=== PATIENT | male | born 1940 | race Caucasian/White ===

== ENCOUNTER 2018-10-25 15:41 | Inpatient (IN) | payer OTHER, BC ==
--- NOTE | 2018-10-25 16:11 | PDOC ---
History of Present Illness - General Chief Complaint: Syncope/Near Syncope Stated Complaint: SYNCOPE Time Seen by Provider: 10/25/18 16:10 History Source: Patient Exam Limitations: No Limitations - History of Present Illness Initial Comments: 10/25/18 16:11 This is a 78 yo M with pmh of HTN, HLD, NIDDM, CAD s/p stent 2010, parkinsons, who presents s/p 2 syncopal episodes. patient was at baseline until this morning when he started feeling week. He was on the way to a coffee shop when he felt diffuse weakness and lightheadedness which preceded an unwitnessed syncopal episode. patient does not know how long he was unconscious but woke up to 2 people helping him get his R leg out of a fence where it was stuck. He proceeded to walk to the coffee shop where he syncopised again (same prodrinme bt was caught by an employee). He denies feeling cp, palpitations, flushing, sweating, nausea before either episodes. He denies feeling unusually tired, urinating onhimsef or discovering a bitten tongue once he woke up. He typically experiences palpitations and l sided cp when he exerts himself. 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 He denies focal weakness or paresthesia but complains of r knee pain, upper thoracic and lumbar spine pain. drinks several glasses of wine /week states he had a tetanus shot within the past 10 yrs 10/25/18 17:01 10/25/18 17:15 10/25/18 17:36 10/25/18 17:49 Past History - Past Medical History Allergies/Adverse Reactions: Allergies Allergy/AdvReac Type Severity Reaction Status Date / Time No Known Allergies Allergy Verified 10/25/18 15:50 Home Medications: Ambulatory Orders Atorvastatin Ca [Lipitor] 40 mg PO HS 10/25/18 Brimonidine Tartrate/Timolol [Combigan Eye Drops] 1 drop OU BID 10/25/18 Carbidopa/Levodopa [Carbidopa-Levo ER 50-200 Tab] 1 each PO TID 10/25/18 Carvedilol [Coreg -] 3.125 mg PO BID 10/25/18 Glipizide/Metformin HCl [Glipizide-Metformin 5-500 mg] 1 each PO TID 10/25/18 Lisinopril [Prinivil] 10 mg PO DAILY 10/25/18 Sitagliptin Phosphate [Januvia] 100 mg PO DAILY 10/25/18 Anemia: No Asthma: No Cancer: No Cardiac Disorders: Yes (CAD) CVA: No COPD: No CHF: No Dementia: No Diabetes: Yes (x43 yrs) GI Disorders: No Disorders: No HTN: Yes Hypercholesterolemia: Yes Liver Disease: No Seizures: No Thyroid Disease: No - Surgical History Abdominal Surgery: No Appendectomy: Yes Cardiac Surgery: Yes (cardiac stent 1x) Cholecystectomy: No Lung Surgery: No Neurologic Surgery: No Orthopedic Surgery: No - Suicide/Smoking/Psychosocial Hx Smoking Status: No Smoking History: Never smoked Have you smoked in the past 12 months: No Number of Cigarettes Smoked Daily: 0 If you are a former smoker, when did you quit?: 30 yrs ago Hx Alcohol Use: No Drug/Substance Use Hx: No Substance Use Type: None Hx Substance Use Treatment: No Review of Systems - Review of Systems Able to Perform ROS?: Yes Is the patient limited Chinese proficient: No Constitutional: Yes: Weakness. No: Chills, Fever, Malaise, Night Sweats HEENTM: No: Nose Congestion, Tinnitus, Throat Pain Respiratory: No: Cough, Orthopnea, Shortness of Breath, Wheezing, Hemoptysis Cardiac (ROS): Yes: Lightheadedness. No: Chest Pain, Edema, Irregular Heart Rate, Palpitations ABD/GI: No: Abdominal Distended, Constipated, Diarrhea, Nausea, Vomiting, Abdominal cramping : No: Dysuria Musculoskeletal: Yes: Back Pain (thoracic and lumbar ), Joint Pain (r knee ) Neurological: No: Headache, Numbness, Paresthesia, Ataxia *Physical Exam - Vital Signs Last Vital Signs Temp Pulse Resp BP Pulse Ox 98.2 F 81 14 149/73 99 10/25/18 15:45 10/25/18 15:45 10/25/18 15:45 10/25/18 15:45 10/25/18 15:45 - Physical Exam General Appearance: Yes: Appropriately Dressed. No: Apparent Distress HEENT: positive: EOMI, KEVIN, Normal Voice, Symmetrical. negative: Scleral Icterus (R), Scleral Icterus (L) Neck: positive: Trachea midline, Normal Thyroid, Supple. negative: Tender Respiratory/Chest: positive: Lungs Clear, Normal Breath Sounds. negative: Chest Tender Cardiovascular: positive: Regular Rate, S1, S2, Murmur (loud systolic murmur best at apex radiating to carotids ). negative: JVD Gastrointestinal/Abdominal: positive: Normal Bowel Sounds, Flat, Soft. 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 negative: Facial Droop, Sensory Deficit Moderate Sedation - Procedure Monitoring Vital Signs: Procedure Monitoring Vital Signs Temperature 98.2 F 10/25/18 15:45 Pulse Rate 81 10/25/18 15:45 Respiratory Rate 14 10/25/18 15:45 Blood Pressure 149/73 10/25/18 15:45 O2 Sat by Pulse Oximetry (%) 99 10/25/18 15:45 ED Treatment Course - LABORATORY CBC & Chemistry Diagram: 10/25/18 16:54 10/25/18 16:54 - ADDITIONAL ORDERS Additional order review: 10/25/18 17:45 ekg ns 80 rbbb (old), new t inversion in III 10/25/18 17:49 labs significant for slight hyponatremia and elevated BUN consistent with volume contraction, will replete mag to 2. 10/25/18 18:14 10/25/18 18:[address] no acute pathology, chronic microvascular infarcts 10/25/18 18:50 will need at least obs tele if spine/r knee xrays are negative *DC/Admit/Observation/Transfer Diagnosis at time of Disposition: Syncope and collapse - Referrals Referrals: Kiko Brower MD [Primary Care Provider] - - Patient Instructions - Post Discharge Activity
[2018-10-25 17:15] LABS: BASO % 0.8 % (0-2.0); EOS % 0.4 % (0-4.5); HEMATOCRIT 29.1 % (35.4-49); HEMOGLOBIN 9.8 GM/dL (11.7-16.9); LYMPH % 8.8 % (8-40); MCH 29.5 pg (25.7-33.7); MCHC 33.8 g/dl (32.0-35.9); MEAN CELL VOLUME 87.4 fl (80-96); MEAN PLT VOLUME 8.6 fl (7.5-11.1); MONO % 9.1 % (3.8-10.2); NEUT % 80.9 % (42.8-82.8); PLATELET COUNT 220 K/MM3 (134-434); RBC 3.33 M/mm3 (4.00-5.60); RDW 15.7 % (11.9-15.9); WHITE BLOOD COUNT 7.5 K/mm3 (4.0-10.0)
[2018-10-25 17:38] LABS: ALBUMIN 3.3 g/dl (3.4-5.0); ALK PHOS 63 U/L (45-117); ANION GAP 6 MMOL/L (8-16); BILIRUBIN,TOTAL 0.4 mg/dL (0.2-1); BLOOD UREA NITROGEN 35 mg/dL (7-18); CALCIUM 8.9 mg/dL (8.5-10.1); CHLORIDE 103 mmol/L (98-107); CO2 26 mmol/L (21-32); GLUCOSE,RANDOM 271 mg/dL (74-106); MAGNESIUM 1.7 mg/dL (1.8-2.4); PHOSPHOROUS 3.2 mg/dL (2.5-4.9); POTASSIUM 5.1 mmol/L (3.5-5.1); SGOT/AST 40 U/L (15-37); SGPT/ALT 57 U/L (13-61); SODIUM 134 mmol/L (136-145); TOT PROT 6.5 g/dl (6.4-8.2)
[2018-10-25] MEDS ORDERED: MAGNESIUM SULF 50% (8.12 MEQ/2 ML-1 GM VIAL) IVPB ONE (17:45)
[2018-10-25] MEDS ORDERED: SODIUM CHLORIDE 0.9% 500 ML INFUS.BAG IV ONE (18:13)
[2018-10-25] MEDS ORDERED: MAGNESIUM 1GM/D5W - 1 GM/100 ML IVPB IVPB ONE (18:35)
--- NOTE | 2018-10-25 18:49 | PDOC ---
Attending Attestation - HPI HPI: 10/25/18 19:01 The patient is a 78 year old male, with a significant past medical history of NIDDM, HTN, HLD, parkinsons, CAD s/p stent (on aspirin and Coreg), who presents to the emergency department s/p syncopal episode today. He states he was on his way to a coffee shop when he developed lightheadedness preceding his unwitnessed fall. The patient states he does not recall how long he was unconscious for. He states his right leg was stuck in a fence. He states that when he was able to get his leg free, he walked into the coffee shop and syncopize again, but was caught by an employee before hitting the ground. The patient denies chest pain, shortness of breath, headache. The patient denies fever, chills, nausea, vomit, diarrhea and constipation. The patient denies dysuria, frequency, urgency and hematuria. Allergies: NKDA Documentation prepared by Gus Viramontes, acting as paramedical aide for Anna Werner MD. <Gus Viramontes - Last Filed: 10/25/18 19:01> - Resident Resident Name: Christine Lopez - ED Attending Attestation I have performed the following: I have examined & evaluated the patient, The case was reviewed & discussed with the resident, I agree w/resident's findings & plan, Exceptions are as noted - Physicial Exam PE: 10/25/18 23:25 wnwd 78 yo male in no acute distress head no scalp lacerations eyes eomi,fabian neck no midline tenderness lung s cta b/l cvs [id number] abd nontender ext no deformities neuro alert,moving his extremities - Medical Decision Making 10/25/18 20:52 78-year-old man s/p syncopal episode thoracic radiographs shows no fractures Radiograph of lumbar spine shows degenerative changes with wedging. No fracture Right knee x-ray reveals no fracture 10/25/18 20:54 Review of labs shows hyperglycemia, BUN is 35, mild dehydration. Troponin is negative he will be admitted to TELEMETRY pt admitted obs tele <Anna Werner - Last Filed: 10/25/18 23:26>
--- NOTE | 2018-10-25 20:29 | PDOC ---
*Physical Exam - Vital Signs Last Vital Signs Temp Pulse Resp BP Pulse Ox 98.5 F 65 18 162/55 L 97 10/25/18 19:28 10/25/18 19:28 10/25/18 19:28 10/25/18 19:28 10/25/18 19:28 - Physical Exam Comments: 10/25/18 20:28 Received sign out from Dr. Lopez ED Treatment Course - LABORATORY CBC & Chemistry Diagram: 10/26/18 05:30 10/26/18 05:30 - ADDITIONAL ORDERS Additional order review: Laboratory Results 10/25/18 10/25/18 17:20 16:54 Sodium 134 L Potassium 5.1 Chloride 103 Carbon Dioxide 26 Anion Gap 6 L BUN 35 H Creatinine 1.0 Creat Clearance w eGFR > 60 Random Glucose 271 H Calcium 8.9 Phosphorus 3.2 Magnesium 1.7 L Total Bilirubin 0.4 AST 40 H ALT 57 Alkaline Phosphatase 63 Creatine Kinase 223 Creatine Kinase Index 2.1 CK-MB (CK-2) 4.9 H Troponin I 0.05 Total Protein 6.5 Albumin 3.3 L 10/25/18 16:54 RBC 3.33 L MCV 87.4 MCHC 33.8 RDW 15.7 MPV 8.6 Neutrophils % 80.9 Lymphocytes % 8.8 D Monocytes % 9.1 Eosinophils % 0.4 Basophils % 0.8 - Medications Given in the ED: ED Medications Discontinued Medications Generic Name Dose Route Start Last Admin Trade Name Freq PRN Reason Stop Dose Admin Magnesium Sulfate 1 gm 10/25/18 17:45 10/25/18 18:41 Magnesium Sulfate IVPB 10/25/18 17:46 1 gm ONCE ONE Administration Sodium Chloride 1,000 ml 10/25/18 18:13 10/25/18 18:41 Normal Saline - IV 10/25/18 18:14 1,000 ml ONCE ONE Administration Medical Decision Making - Medical Decision Making 10/26/18 12:28 78 yo M with significant cardiac history presents to the emergency department s/ p syncopal episode. He was admitted to [facility] for further work up. *DC/Admit/Observation/Transfer Diagnosis at time of Disposition: Syncope and collapse - Discharge Dispostion Decision to Admit order Date/Time: Decision to Admit Order Category Date Time Status Decision to Admit to Hospital Routine Admission 10/25/18 20:27 Ordered - Referrals - Patient Instructions - Post Discharge Activity
[2018-10-25 20:40] LABS: URINE APPEARANCE SLCLOUDY; URINE BILIRUBIN NEGATIVE (<2.0 mg/dL); URINE COLOR YELLOW; URINE GLUCOSE (UA) 3+ (NEGATIVE); URINE KETONE NEGATIVE (NEGATIVE); URINE LEUK ESTERASE NEGATIVE (NEGATIVE); URINE NITRITE NEGATIVE (NEGATIVE); URINE PROTEIN NEGATIVE (NEGATIVE); URINE UROBILINOGEN NEGATIVE mg/dL (0.2-1.0)
--- NOTE | 2018-10-25 21:05 | HP ---
Admitting History and Physical - Primary Care Physician PCP: Kiko Brower - Admission Chief Complaint: Chest Pain, Weakness, Lighthededness, R- knee Pain, L- Spine Pain History of Present Illness: This is a 78 y/o man with a past medical history of HTN, HLD, CAD s/p Stent ( 2009), Parkinson's, Glaucoma. Who presents to the ED with his daughter for syncopal episodes x2, chest pain, lightheadedness, weakness, R-knee and lumbar pain x today. Patient reports not "feeling well" this am with lightheadedness. He reports driving to the store and while walking he began having L-sided non- radiating CP with SOB- now resolved since being in the ED. Patient reports passing out twice and having his R- leg stuck in a fence requiring assistance. His daughter report's that he fell backwards last Wednesday- abrasion and skin tear to R- elbow, patient denies LOC or head injury. Patient reports having an upcoming Stress Test scheduled for November with his Dr. Clark. 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 Cardiovascular: Yes: CAD, HTN, Hyperlipdemia Endocrine: Yes: Diabetes Mellitus - Past Surgical History Past Surgical History: Yes: Appendectomy, Stent Additional Past Surgical History: Pilonidal Cyst Removal - Smoking History Smoking history: Former smoker Have you smoked in the past 12 months: No Aproximately how many cigarettes per day: 0 If you are a former smoker, when did you quit?: 30 yrs ago - Alcohol/Substance Use Hx Alcohol Use: No History of Substance Use: reports: None - Social History Usual Living Arrangement: Yes: With Child ADL: Independent History of Recent Travel: No Home Medications - Allergies Allergies/Adverse Reactions: Allergies Allergy/AdvReac Type Severity Reaction Status Date / Time No Known Allergies Allergy Verified 10/25/18 15:50 - Home Medications Home Medications: Ambulatory Orders Atorvastatin Ca [Lipitor] 40 mg PO HS 10/25/18 Brimonidine Tartrate/Timolol [Combigan Eye Drops] 1 drop OU BID 10/25/18 Carbidopa/Levodopa [Carbidopa-Levo ER 50-200 Tab] 1 each PO TID 10/25/18 Carvedilol [Coreg -] 3.125 mg PO BID 10/25/18 Glipizide/Metformin HCl [Glipizide-Metformin 5-500 mg] 1 each PO TID 10/25/18 Lisinopril [Prinivil] 10 mg PO DAILY 10/25/18 Sitagliptin Phosphate [Januvia] 100 mg PO DAILY 10/25/18 Review of Systems - Review of Systems Constitutional: reports: Weakness Eyes: reports: No Symptoms HENT: reports: No Symptoms Neck: reports: No Symptoms Cardiovascular: reports: Chest Pain, Shortness of Breath Respiratory: reports: SOB, SOB on Exertion Gastrointestinal: reports: No Symptoms Genitourinary: reports: No Symptoms Breasts: reports: No Symptoms Reported Musculoskeletal: reports: Back Pain, Extremity Pain, Joint Pain Integumentary: reports: Bruising, Wound Neurological: reports: Dizziness, Unsteady Gait, Weakness Endocrine: reports: No Symptoms Hematology/Lymphatic: reports: No Symptoms Psychiatric: reports: No Symptoms Physical Examination Vital Signs: Vital Signs Temperature 98.5 F 10/25/18 19:28 Pulse Rate 65 10/25/18 19:28 Respiratory Rate 18 10/25/18 19:28 Blood Pressure 162/55 L 10/25/18 19:28 O2 Sat by Pulse Oximetry (%) 97 10/25/18 19:28 Constitutional: Yes: Well Nourished, No Distress, Calm Eyes: Yes: WNL, Conjunctiva Clear, EOM Intact, PERRL HENT: Yes: WNL, Atraumatic, Normocephalic Neck: Yes: WNL, Supple, Trachea Midline Cardiovascular: Yes: Regular Rate and Rhythm, Murmur, S1, S2 Respiratory: Yes: WNL, Regular, CTA Bilaterally Gastrointestinal: Yes: WNL, Normal Bowel Sounds, Soft ...Rectal Exam: Yes: WNL, Guaiac Negative, Sphincter Tone Normal Renal/: Yes: WNL Breast(s): Yes: WNL Musculoskeletal: Yes: Back Pain, Joint Stiffness Extremities: Yes: WNL Edema: No Peripheral Pulses WNL: Yes Integumentary: Yes: Bruising (right elbow), Erythema (right knee), Other ( superficial abrasions to left scapula) Wound/Incision: Yes: Steri Strips (right forearm), Other (bandaid to right elbow ) Neurological: Yes: Alert, Oriented, Cran Nerves II-XII Intact, Other (cogwheel gait) ...Motor Strength: WNL Psychiatric: Yes: WNL, Alert, Oriented Labs: CBC, BMP 10/25/18 16:54 10/25/18 16:54 Laboratory Results - last 24 hr 10/25/18 10/25/18 10/25/18 16:54 16:54 17:20 WBC 7.5 RBC 3.33 L Hgb 9.8 L Hct 29.1 L D MCV 87.4 MCH 29.5 MCHC 33.8 RDW 15.7 Plt Count 220 MPV 8.6 Absolute Neuts (auto) 6.0 Neutrophils % 80.9 Lymphocytes % 8.8 D Monocytes % 9.1 Eosinophils % 0.4 Basophils % 0.8 Nucleated RBC % 0 Sodium 134 L Potassium 5.1 Chloride 103 Carbon Dioxide 26 Anion Gap 6 L BUN 35 H Creatinine 1.0 Creat Clearance w eGFR > 60 POC Glucometer Random Glucose 271 H Calcium 8.9 Phosphorus 3.2 Magnesium 1.7 L Total Bilirubin 0.4 AST 40 H ALT 57 Alkaline Phosphatase 63 Creatine Kinase 223 Creatine Kinase Index 2.1 CK-MB (CK-2) 4.9 H Troponin I 0.05 Total Protein 6.5 Albumin 3.3 L Urine Color Urine Appearance Urine pH Ur Specific [place] Urine Protein Urine Glucose (UA) Urine Ketones Urine Blood Urine Nitrite Urine Bilirubin Urine Urobilinogen Ur Leukocyte Esterase Stool Occult Blood 10/25/18 10/25/18 10/25/18 20:10 22:25 23:10 WBC RBC Hgb Hct MCV MCH MCHC RDW Plt Count MPV Absolute Neuts (auto) Neutrophils % Lymphocytes % Monocytes % Eosinophils % Basophils % Nucleated RBC % Sodium Potassium Chloride Carbon Dioxide Anion Gap BUN Creatinine Creat Clearance w eGFR POC Glucometer 256 Random Glucose Calcium Phosphorus Magnesium Total Bilirubin AST ALT Alkaline Phosphatase Creatine Kinase Creatine Kinase Index CK-MB (CK-2) Troponin I Total Protein Albumin Urine Color Yellow Urine Appearance Slcloudy Urine pH 5.0 Ur Specific [place] 1.021 Urine Protein Negative Urine Glucose (UA) 3+ H Urine Ketones Negative Urine Blood Negative Urine Nitrite Negative Urine Bilirubin Negative Urine Urobilinogen Negative Ur Leukocyte Esterase Negative Stool Occult Blood Negative Current Medications Generic Name Dose Route Start Last Admin Trade Name Freq PRN Reason Stop Dose Admin Atorvastatin Calcium 40 mg 10/25/18 22:00 10/25/18 23:19 Lipitor - PO 40 mg HS PANKAJ Administration Brimonidine Tartrate 1 drop 10/25/18 22:30 10/25/18 23:20 Alphagan 0.2% - OU 1 drop BID PANKAJ Administration Carbidopa/Levodopa 1 combo 10/25/18 22:00 10/25/18 23:20 Sinemet *Cr* 50/200 - PO 1 combo TID PANKAJ Administration Carvedilol 3.125 mg 10/25/18 22:00 10/25/18 23:19 Coreg - PO 3.125 mg BID PANKAJ Administration Insulin Aspart 1 vial 10/25/18 22:00 10/25/18 23:20 Novolog Vial Sliding Scale - SQ 6 units ACHS PANKAJ Administration Protocol Lisinopril 10 mg 10/26/18 10:00 Prinivil PO DAILY PANKAJ Timolol Maleate 1 drop 10/25/18 22:30 10/25/18 23:20 Timoptic 0.5% OU 1 drop BID PANKAJ Administration Imaging - Results X-ray: Report Reviewed (knee xray- no acute right knee pathology LSP xray- Arthritic changes with wedging TSP xray- Slight Scoliosis with degenerative changes), Image Reviewed Cat Scan: Report Reviewed (No acute pathology- chronic microvascular infarcts), Image Reviewed EKG: Image Reviewed (NS, RBBB, TWI lead III QT/QTc 414/477) Problem List - Problems (1) Syncope and collapse Assessment/Plan: Likely due to arrhythmia vs Dehydration vs Electrolyte Imbalance Cardiac monitoring Serial Enzymes Appreciate Cardiology consult Carotid Doppler Echo Patient reports pending Stress Test will defer to Cardiology Fall precautions Code(s): R55 - SYNCOPE AND COLLAPSE (2) Chest pain Assessment/Plan: Likely due to ACS vs Angina vs Atypical Continue cardiac monitoring Serial Enzymes neg x1, will continue trend EKG showed SR with RBBB and new TWI lead III Appreciate Cardiology consult Echo in am Continue Asa, BB HgbA1c, Lipid Profile in am Code(s): R07.9 - CHEST PAIN, UNSPECIFIED (3) Fall Assessment/Plan: Likely due to arrhythmia vs dehydration vs electrolyte imbalance vs disease process LSP xray- arthritic changes TSP xray-slight scoliosis degenerative changes R- knee- no acute pathology Tylenol prn Fall Precautions PT eval Code(s): W19.XXXA - UNSPECIFIED FALL, INITIAL ENCOUNTER (4) CAD (coronary artery disease) Assessment/Plan: Stable EKG- NS with RBBB (old), TWI lead III (new) Continue home meds Code(s): I25.10 - ATHSCL HEART DISEASE OF [place] CORONARY ARTERY W/O ANG PCTRS (5) HTN (hypertension) Assessment/Plan: Stable Monitor BP Continue Lisinopril Code(s): I10 - ESSENTIAL (PRIMARY) HYPERTENSION (6) HLD (hyperlipidemia) Assessment/Plan: stable Continue Lipitor Monitor LFTs Code(s): E78.5 - HYPERLIPIDEMIA, UNSPECIFIED (7) Diabetes mellitus Assessment/Plan: Suboptimal BGMs ISS Hold home meds for now secondary ? further imaging/testing Monitor renal function HgbA1c in am Code(s): E11.9 - TYPE 2 DIABETES MELLITUS WITHOUT COMPLICATIONS (8) Parkinson disease Assessment/Plan: Stable Continue Carbidopa/Levodopa Fall Precautions Code(s): G20 - PARKINSON'S DISEASE (9) Anemia Assessment/Plan: Likely secondary to ARIANA Hgb 9.8 baseline (14.2) FE, TIBC, Ferritin in am Stool Occult- negative Will transfuse if Hgb < 7.0 f/u [facility] Hematology in outpatient upon d/c Code(s): D64.9 - ANEMIA, UNSPECIFIED (10) Glaucoma Assessment/Plan: stable Continue home meds Code(s): H40.9 - UNSPECIFIED GLAUCOMA Assessment/Plan This is 78 y/o man laced in Telemetry Observation for Syncope, Chest Pain r/o ACS for further evaluation of their emergent condition. Plan: See problem list FEN PO fluids as tolerated Replete lytes prn Low NA. Diabetic Diet DVT ppx OOB SCDs Consider AC if LOS > 48 hrs Dispo: Observation Visit type - Emergency Visit Emergency Visit: Yes ED Registration Date: 10/25/18 Care time: The patient presented to the Emergency Department on the above date and was hospitalized for further evaluation of their emergent condition. - New Patient This patient is new to me today: Yes Date on this admission: 10/25/18 - Critical Care Critical Care patient: No
[2018-10-25] MEDS ORDERED: PATIENT'S OWN MEDICATION (NON-FORMULARY) (Brimonidine Tartrate/Timolol [Combigan 0.2%-0.5% OU SCH (22:00)
[2018-10-25] MEDS ORDERED: INSULIN (NOVOLOG) ASPART 100 UNITS/ML 10ML VIAL ONE (23:13)
[2018-10-25] MEDS: ATORVASTATIN CA 40 MG TABLET (FP) PO SCH (23:19)
[2018-10-25] MEDS: CARVEDILOL 3.125 MG TABLET (FP) PO SCH (23:19)
[2018-10-25] MEDS: BRIMONIDINE TARTRATE 0.2% OPHTHALMIC 5 ML BOTTLE OU SCH (23:20)
[2018-10-25] MEDS: TIMOLOL 0.5% OPHTHALMIC SOL 5 ML BOTTLE OU SCH (23:20)
[2018-10-25] MEDS: INSULIN SLIDING SCALE (NOVOLOG) 1 VIAL SQ SCH (23:20)
[2018-10-26 00:56] VITALS: BMI 22.4
[2018-10-26] MEDS: ACETAMINOPHEN 325 MG TABLET (FP) PO PRN ×2 (01:46→14:01)
[2018-10-26] MEDS ORDERED: ASPIRIN 81 MG CHEWABLE TABLETS PO ONE (03:14)
[2018-10-26] MEDS: INSULIN SLIDING SCALE (NOVOLOG) 1 VIAL SQ SCH ×4 (06:39→22:26)
[2018-10-26 08:05] LABS: BASO % 0.5 % (0-2.0); EOS % 0.5 % (0-4.5); HEMATOCRIT 25.4 % (35.4-49); HEMOGLOBIN 9.1 GM/dL (11.7-16.9); LYMPH % 15.8 % (8-40); MCH 30.6 pg (25.7-33.7); MCHC 35.7 g/dl (32.0-35.9); MEAN CELL VOLUME 85.8 fl (80-96); MEAN PLT VOLUME 9.1 fl (7.5-11.1); MONO % 11.9 % (3.8-10.2); NEUT % 71.3 % (42.8-82.8); PLATELET COUNT 187 K/MM3 (134-434); RBC 2.96 M/mm3 (4.00-5.60); RDW 15.4 % (11.9-15.9); WHITE BLOOD COUNT 6.3 K/mm3 (4.0-10.0)
--- NOTE | 2018-10-26 08:56 | CON.CARD ---
Consult Consult Specialty:: Cardiology Referred by:: Dr. Liu Reason for Consultation:: Syncope - History of Present Illness Chief Complaint: Syncope x 2 History of Present Illness: 78 y/o man with a past medical history of HTN, HLD, CAD s/p Stent (2009), Parkinson's, Glaucoma. Who presents to the ED with his daughter for syncopal episodes x2, chest pain, lightheadedness, weakness, R-knee and lumbar pain x today. Patient reports not "feeling well" this am with lightheadedness. He reports driving to the store and while walking he began having L-sided non- radiating CP with SOB- now resolved since being in the ED. Patient reports passing out twice and having his R- leg stuck in a fence requiring assistance. His daughter report's that he fell backwards last Wednesday- abrasion and skin tear to R- elbow, patient denies LOC or head injury Of note, I have followed him closely for moderate bilateral carotid stenosis and moderate aortic valve stenosis. 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: Parkinson's Cardio/Vascular: Yes: Aortic Stenosis (moderate), CAD, HTN, Hyperlipdemia, Other (Moderate bilateral carotid stenosis) Pulmonary: No: Asthma, Bronchitis, Cancer, COPD, O2 Dependent, Pneumonia, Previously Intubated, Pulmonary Embolus, Pulmonary Fibrosis, Sleep Apnea, Other Gastrointestinal: No: Ascites, Cancer, Constipation, Crohn's Disease, Diverticulitis, Diverticulosis, Esophageal Varices, Gastritis, GERD, GI Bleed, Hemorrhoids, Hiatal Hernia, Inflamatory Bowel Disease, Irritable Bowel Disease, Pancreatitis, Peptic Ulcer Disease, Ulcerative Colitis, Other Hepatobiliary: No: Cirrhosis, Cholelithiasis, Cholecystitis, Choledocholithiasis , Hepatitis A, Hepatitis B, Hepatitis C, Other Renal/: No: Renal Failure, Renal Inusuff, BPH, Cancer, Hematuria, Hemodialysis , Neurogenic Bladder, Renal Calculi, UTI, Other Heme/Onc: Yes: Anemia Infectious Disease: No: AIDS, C-Diff, Herpes Zoster, HIV, MRSA, STD's, Tuberculosis, VREF, Other Psych: No: Addictions, Anxiety, Bipolar, Depression, Panic, Psychosis, Schizophrenia, Other Musculoskeletal: No: Bursitis, Chronic low back pain, Hemiparesis, Hemiplegia, Osteoarthritis, Paraplegia, Other Rheumatology: No: Fibromyalgia, Gout, Lupus, Rheumatoid Arthritis, Sarcoidosis, Vasculitis, Other Endocrine: Yes: Diabetes Mellitus - Past Surgical History Past Surgical History: Yes: Appendectomy, Stent - Alcohol/Substance Use Hx Alcohol Use: No History of Substance Use: reports: None - Smoking History Smoking history: Former smoker Have you smoked in the past 12 months: No Aproximately how many cigarettes per day: 0 If you are a former smoker, when did you quit?: 30 yrs ago - Social History ADL: Independent History of Recent Travel: No Home Medications - Allergies Allergies/Adverse Reactions: Allergies Allergy/AdvReac Type Severity Reaction Status Date / Time No Known Allergies Allergy Verified 10/25/18 15:50 - Home Medications Home Medications: Ambulatory Orders Atorvastatin Ca [Lipitor] 40 mg PO HS 10/25/18 Brimonidine Tartrate/Timolol [Combigan Eye Drops] 1 drop OU BID 10/25/18 Carbidopa/Levodopa [Carbidopa-Levo ER 50-200 Tab] 1 each PO TID 10/25/18 Carvedilol [Coreg -] 3.125 mg PO BID 10/25/18 Glipizide/Metformin HCl [Glipizide-Metformin 5-500 mg] 1 each PO TID 10/25/18 Lisinopril [Prinivil] 10 mg PO DAILY 10/25/18 Sitagliptin Phosphate [Januvia] 100 mg PO DAILY 10/25/18 Family Disease History - Family Disease History Family History: Unremarkable Review of Systems Findings/Remarks: Patient states that over the last several weeks, he has had some exertional chest pressure but did not mention it. Mild chronic BARRY. NO PND or orthopnea - Review of Systems Constitutional: reports: Other (Fatigue) Eyes: reports: No Symptoms HENT: reports: No Symptoms Neck: reports: No Symptoms Cardiovascular: reports: Chest Pain, Shortness of Breath Respiratory: denies: No Symptoms, Cough, Exercise Intolerance, Hemoptysis, Orthopnea, PND, Snoring, SOB, SOB on Exertion, Wheezing, Other Gastrointestinal: denies: No Symptoms, Abdominal Pain, Bloating, Constipation, Diarrhea, Dysphagia, Indigestion, Melena, Nausea, Rectal Bleeding, Vomiting, Vomiting Blood, Other Genitourinary: denies: No Symptoms, Burning, Discharge, Dysuria, Flank Pain, Frequency, Hematuria, Incontinence, Lesions, Menses, Pain, Testicular Mass, Testicular Pain, Testicular Swelling, Urgency, Vaginal Bleeding, Other Breasts: denies: No Symptoms Reported, See HPI, Breast Implants, Discharge from Nipple, Lumps, Pain, Skin Changes, Other Musculoskeletal: denies: No Symptoms, Back Pain, Crepitus, Decreased ROM, Extremity Pain, Joint Pain, Joint Swelling, Muscle Pain, Muscle Cramps, Muscle Weakness, Other Integumentary: denies: No Symptoms, Blister, Bruising, Change in Color, Eczema, Erythema, Incision, Lesions, Lump, Pallor, Pruritis, Rash, Wound, Other Neurological: reports: Syncope Endocrine: denies: No Symptoms, Excessive Sweating, Flushing, Increased Hunger, Increased Thirst, Intolerance to Cold, Intolerance to Heat, Unexplained Weight Gain, Unexplained Weight Loss, Other Psychiatric: denies: No Symptoms, Altered Sleep Pattern, Anxiety, Depression, Hallucinations, Panic, Paranoia, Suicidal, Other - Risk Factors Known Risk Factors: Yes: Diabetes Mellitus, Hypercholesterolemia, Hypertension, Other (known CAD) Vital Signs: Vital Signs Temperature 98.6 F 10/26/18 05:00 Pulse Rate 64 10/26/18 05:00 Respiratory Rate 17 10/26/18 05:00 Blood Pressure 125/72 10/26/18 05:00 O2 Sat by Pulse Oximetry (%) 97 10/26/18 04:29 Constitutional: Yes: No Distress Eyes: Yes: Other (Pale Conjunctiva) HENT: Yes: Atraumatic Neck: Yes: Supple Respiratory: Yes: CTA Bilaterally Gastrointestinal: Yes: Soft Cardiovascular: Yes: Regular Rate and Rhythm JVD: No Carotid Bruit: No PMI: Non-Displaced Heart Sounds: Yes: S1, S2 Murmur: Yes: Systolic Murmur (2/6 PETERSON RSB c/w ) Edema: No Peripheral Pulses WNL: Yes Integumentary: Yes: WNL Neurological: Yes: Alert, Oriented, Unsteady Gait ...Motor Strength: WNL Psychiatric: Yes: WNL - Other Data Labs, Other Data: CBC, BMP 10/26/18 05:30 Troponin, BNP 10/25/18 10/25/18 17:20 23:45 Troponin I 0.05 0.15 H Troponin, BNP 02/05/19 02/05/19 17:20 23:45 Troponin I 0.05 0.15 H Laboratory Tests 10/25/18 10/25/18 10/25/18 16:54 17:20 22:25 WBC Hgb Plt Count Sodium 134 L Potassium 5.1 BUN 35 H Creatinine 1.0 Creatine Kinase 223 Troponin I Stool Occult Blood Negative 10/25/18 10/26/18 10/26/18 23:45 05:30 05:30 WBC 6.3 Hgb 9.1 L Plt Count 187 Sodium Potassium BUN Creatinine Creatine Kinase Troponin I 0.15 H Pending Stool Occult Blood NSR 80 bpm, 1st degree AV block, RBBB- chronic. Echo: Pending Prior Cardiac Procedures: PTCA with Stent Ejection Fraction %: LVEF > or = 40 % Imaging - Results Chest X-ray: Image Reviewed EKG: Image Reviewed Other: Image Reviewed (Carotid US Moderate LICA disease) Problem List - Problems (1) Syncope and collapse Code(s): R55 - SYNCOPE AND COLLAPSE (2) Aortic valve stenosis Code(s): I35.0 - NONRHEUMATIC AORTIC (VALVE) STENOSIS Qualifiers: Cardiac valve disease etiology: nonrheumatic Qualified Code(s): I35.0 - Nonrheumatic aortic (valve) stenosis (3) Carotid stenosis Code(s): I65.29 - OCCLUSION AND STENOSIS OF UNSPECIFIED CAROTID ARTERY Qualifiers: Laterality: left Qualified Code(s): I65.22 - Occlusion and stenosis of left carotid artery (4) CAD (coronary artery disease) Code(s): I25.10 - ATHSCL HEART DISEASE OF [place] CORONARY ARTERY W/O ANG PCTRS Qualifiers: Coronary Disease-Associated Artery/Lesion type: [place] artery [place] vs. transplanted heart: [place] heart Associated angina: with stable angina Qualified Code(s): I25.118 - Atherosclerotic heart disease of [place] coronary artery with other forms of angina pectoris (5) Diabetes mellitus Code(s): E11.9 - TYPE 2 DIABETES MELLITUS WITHOUT COMPLICATIONS Qualifiers: Diabetes mellitus type: type 2 Diabetes mellitus complication status: with circulatory complication (6) Parkinson disease Code(s): G20 - PARKINSON'S DISEASE Assessment/Plan IMP: Syncope Aortic stenosis, moderate CAD s/p PCI Carotid stenosis, moderate RBBB DM Parkinon's disease Anemia REC: Concern for either progression of aortic stenosis vs cardiac arrhythmia as ECG shows evidence underlying conduction system dz. Anemic, but not degree to explain current presentation. 1. Tele 2. Echo to assess severity 3. To consider CTA carotids 4. Orthostatics 5. Trend cardiac enzymes 6. Continue home meds for now. Will follow, thank you.
[2018-10-26] MEDS ORDERED: PT OWN MED DRAWER 7, Y5N ONE (09:15)
[2018-10-26 09:32] LABS: ANION GAP 10 MMOL/L (8-16); BLOOD UREA NITROGEN 26 mg/dL (7-18); CALCIUM 8.2 mg/dL (8.5-10.1); CHLORIDE 103 mmol/L (98-107); CO2 24 mmol/L (21-32); CREATININE 0.8 mg/dL (0.55-1.3); GLUCOSE,RANDOM 198 mg/dL (74-106); POTASSIUM 4.4 mmol/L (3.5-5.1); SODIUM 137 mmol/L (136-145)
[2018-10-26] MEDS: TIMOLOL 0.5% OPHTHALMIC SOL 5 ML BOTTLE OU SCH ×2 (09:48→22:15)
[2018-10-26] MEDS: LISINOPRIL 10 MG TABLET (FP) PO SCH (09:48)
[2018-10-26] MEDS: CARVEDILOL 3.125 MG TABLET (FP) PO SCH ×2 (09:48→22:13)
[2018-10-26] MEDS: CHOLECALCIFEROL (VITAMIN D3) 1,000 UNIT TABLET (FP) PO SCH (09:48)
[2018-10-26] MEDS: FOLIC ACID 1 MG TABLET (FP) PO SCH (09:48)
[2018-10-26] MEDS: BRIMONIDINE TARTRATE 0.2% OPHTHALMIC 5 ML BOTTLE OU SCH ×2 (09:49→22:12)
--- NOTE | 2018-10-26 10:40 | PN ---
Progress Note (short form) - Note Progress Note: Events noted No pain No dizziness no chest pain Vital Signs - 24 hr 10/25/18 10/25/18 10/25/18 15:45 19:28 22:56 Temperature 98.2 F 98.5 F Pulse Rate 81 Pulse Rate [ 65 66 Right] Respiratory 14 18 18 Rate Blood Pressure 149/73 Blood Pressure 162/55 L 156/70 [Left Arm] O2 Sat by Pulse 99 97 97 Oximetry (%) 10/26/18 10/26/18 10/26/18 00:28 01:37 04:29 Temperature 97.8 F 98.2 F Pulse Rate 66 62 Pulse Rate [ Right] Respiratory 18 18 17 Rate Blood Pressure 166/70 156/65 Blood Pressure [Left Arm] O2 Sat by Pulse 97 Oximetry (%) 10/26/18 10/26/18 05:00 09:00 Temperature 98.6 F 98.3 F Pulse Rate 64 60 Pulse Rate [ Right] Respiratory 17 18 Rate Blood Pressure 125/72 131/49 L Blood Pressure [Left Arm] O2 Sat by Pulse 97 Oximetry (%) Current Medications Generic Name Dose Route Start Last Admin Trade Name Freq PRN Reason Stop Dose Admin Acetaminophen 650 mg 10/26/18 01:23 10/26/18 01:46 Tylenol - PO 650 mg Q6H PRN Administration PAIN OR FEVER Aspirin 81 mg 10/27/18 10:00 Asa - PO DAILY [facility] Atorvastatin Calcium 40 mg 10/25/18 22:00 10/25/18 23:19 Lipitor - PO 40 mg HS PANKAJ Administration Brimonidine Tartrate 1 drop 10/25/18 22:30 10/26/18 09:49 Alphagan 0.2% - OU 1 drop BID [facility] Administration Carbidopa/Levodopa 1 combo 10/25/18 22:00 10/26/18 06:21 Sinemet *Cr* 50/200 - PO 1 combo TID PANKAJ Administration Carvedilol 3.125 mg 10/25/18 22:00 10/26/18 09:48 Coreg - PO 3.125 mg BID PANKAJ Administration Cholecalciferol 1,000 unit 10/26/18 10:00 10/26/18 09:48 Vitamin D3 - PO 1,000 unit DAILY [facility] Administration Folic Acid 1 mg 10/26/18 10:00 10/26/18 09:48 Folic Acid - PO 1 mg DAILY PANKAJ Administration Insulin Aspart 1 vial 10/25/18 22:00 10/26/18 06:39 Novolog Vial Sliding Scale - SQ 2 units ACHS PANKAJ Administration Protocol Lisinopril 10 mg 10/26/18 10:00 10/26/18 09:48 Prinivil PO 10 mg DAILY PANKAJ Administration Timolol Maleate 1 drop 10/25/18 22:30 10/26/18 09:48 Timoptic 0.5% OU 1 drop BID PANKAJ Administration Laboratory Results - last 24 hr 10/25/18 10/25/18 10/25/18 16:54 16:54 17:20 WBC 7.5 RBC 3.33 L Hgb 9.8 L Hct 29.1 L D MCV 87.4 MCH 29.5 MCHC 33.8 RDW 15.7 Plt Count 220 MPV 8.6 Absolute Neuts (auto) 6.0 Neutrophils % 80.9 Lymphocytes % 8.8 D Monocytes % 9.1 Eosinophils % 0.4 Basophils % 0.8 Nucleated RBC % 0 Sodium 134 L Potassium 5.1 Chloride 103 Carbon Dioxide 26 Anion Gap 6 L BUN 35 H Creatinine 1.0 Creat Clearance w eGFR > 60 POC Glucometer Random Glucose 271 H Hemoglobin A1c % Calcium 8.9 Phosphorus 3.2 Magnesium 1.7 L Total Bilirubin 0.4 AST 40 H ALT 57 Alkaline Phosphatase 63 Creatine Kinase 223 Creatine Kinase Index 2.1 CK-MB (CK-2) 4.9 H Troponin I 0.05 Total Protein 6.5 Albumin 3.3 L Urine Color Urine Appearance Urine pH Ur Specific [place] Urine Protein Urine Glucose (UA) Urine Ketones Urine Blood Urine Nitrite Urine Bilirubin Urine Urobilinogen Ur Leukocyte Esterase Stool Occult Blood 10/25/18 10/25/18 10/25/18 20:10 22:25 23:10 WBC RBC Hgb Hct MCV MCH MCHC RDW Plt Count MPV Absolute Neuts (auto) Neutrophils % Lymphocytes % Monocytes % Eosinophils % Basophils % Nucleated RBC % Sodium Potassium Chloride Carbon Dioxide Anion Gap BUN Creatinine Creat Clearance w eGFR POC Glucometer 256 Random Glucose Hemoglobin A1c % Calcium Phosphorus Magnesium Total Bilirubin AST ALT Alkaline Phosphatase Creatine Kinase Creatine Kinase Index CK-MB (CK-2) Troponin I Total Protein Albumin Urine Color Yellow Urine Appearance Slcloudy Urine pH 5.0 Ur Specific [place] 1.021 Urine Protein Negative Urine Glucose (UA) 3+ H Urine Ketones Negative Urine Blood Negative Urine Nitrite Negative Urine Bilirubin Negative Urine Urobilinogen Negative Ur Leukocyte Esterase Negative Stool Occult Blood Negative 10/25/18 10/26/18 10/26/18 23:45 05:30 05:30 WBC 6.3 RBC 2.96 L Hgb 9.1 L Hct 25.4 L MCV 85.8 MCH 30.6 MCHC 35.7 RDW 15.4 Plt Count 187 MPV 9.1 Absolute Neuts (auto) 4.5 Neutrophils % 71.3 Lymphocytes % 15.8 D Monocytes % 11.9 H Eosinophils % 0.5 Basophils % 0.5 Nucleated RBC % 0 Sodium Potassium Chloride Carbon Dioxide Anion Gap BUN Creatinine Creat Clearance w eGFR POC Glucometer Random Glucose Hemoglobin A1c % Calcium Phosphorus Magnesium Total Bilirubin AST ALT Alkaline Phosphatase Creatine Kinase Creatine Kinase Index CK-MB (CK-2) Troponin I 0.15 H 0.18 H Total Protein Albumin Urine Color Urine Appearance Urine pH Ur Specific [place] Urine Protein Urine Glucose (UA) Urine Ketones Urine Blood Urine Nitrite Urine Bilirubin Urine Urobilinogen Ur Leukocyte Esterase Stool Occult Blood 10/26/18 10/26/18 10/26/18 05:30 05:30 06:33 WBC RBC Hgb Hct MCV MCH MCHC RDW Plt Count MPV Absolute Neuts (auto) Neutrophils % Lymphocytes % Monocytes % Eosinophils % Basophils % Nucleated RBC % Sodium 137 Potassium 4.4 Chloride 103 Carbon Dioxide 24 Anion Gap 10 BUN 26 H Creatinine 0.8 Creat Clearance w eGFR > 60 POC Glucometer 197 Random Glucose 198 H Hemoglobin A1c % 6.2 Calcium 8.2 L Phosphorus Magnesium Total Bilirubin AST ALT Alkaline Phosphatase Creatine Kinase Creatine Kinase Index CK-MB (CK-2) Troponin I Total Protein Albumin Urine Color Urine Appearance Urine pH Ur Specific [place] Urine Protein Urine Glucose (UA) Urine Ketones Urine Blood Urine Nitrite Urine Bilirubin Urine Urobilinogen Ur Leukocyte Esterase Stool Occult Blood S1 S2 RRR Lungs clear Abd- soft, NT no edema Abrasions to arms B/L, rt knee abrasion PLAN Carotid doppler shows left ICA stenosis-- ordered CTA Cardiology eval noted PT eval Start iv fluids check orthostasis Problem List - Problems (1) Aortic valve stenosis Code(s): I35.0 - NONRHEUMATIC AORTIC (VALVE) STENOSIS Qualifiers: Cardiac valve disease etiology: nonrheumatic Qualified Code(s): I35.0 - Nonrheumatic aortic (valve) stenosis (2) CAD (coronary artery disease) Code(s): I25.10 - ATHSCL HEART DISEASE OF [place] CORONARY ARTERY W/O ANG PCTRS Qualifiers: Coronary Disease-Associated Artery/Lesion type: [place] artery [place] vs. transplanted heart: [place] heart Associated angina: with stable angina Qualified Code(s): I25.118 - Atherosclerotic heart disease of [place] coronary artery with other forms of angina pectoris (3) Carotid stenosis Code(s): I65.29 - OCCLUSION AND STENOSIS OF UNSPECIFIED CAROTID ARTERY Qualifiers: Laterality: left Qualified Code(s): I65.22 - Occlusion and stenosis of left carotid artery (4) Diabetes mellitus Code(s): E11.9 - TYPE 2 DIABETES MELLITUS WITHOUT COMPLICATIONS Qualifiers: Diabetes mellitus type: type 2 Diabetes mellitus complication status: with circulatory complication (5) Fall Code(s): W19.XXXA - UNSPECIFIED FALL, INITIAL ENCOUNTER (6) HTN (hypertension) Code(s): I10 - ESSENTIAL (PRIMARY) HYPERTENSION (7) Syncope and collapse Code(s): R55 - SYNCOPE AND COLLAPSE
[2018-10-26 10:43] LABS: CHOLESTEROL 84 mg/dL (50-200); HDL CHOLESTEROL 42 mg/dL (40-60); TRIGLYCERIDES 40 mg/dL (0-150)
--- NOTE | 2018-10-26 11:40 | EKG ---
Test Reason : Blood Pressure : / mmHG Vent. Rate : 080 BPM Atrial Rate : 080 BPM P-R Int : 208 ms QRS Dur : 146 ms QT Int : 414 ms P-R-T Axes : 079 093 008 degrees QTc Int : 477 ms NORMAL SINUS RHYTHM RIGHT BUNDLE BRANCH BLOCK ABNORMAL ECG WHEN COMPARED WITH ECG OF 30-JUL-2012 15:37, INVERTED T WAVES HAVE REPLACED NONSPECIFIC T WAVE ABNORMALITY IN INFERIOR LEADS Confirmed by HARPER MCCLELLAN, CHICO ([id number]) on 10/26/2018 11:39:40 AM Referred By: Confirmed By:CHICO SALEEM MD
[2018-10-26] MEDS: SODIUM CHLORIDE 0.9%/KCL 20 MEQ/1,000 ML INFUS.BAG IV SCH (14:00)
--- NOTE | 2018-10-26 14:42 | ECHO ---
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 Exam:Adult Echocardiogram Study Date: 10/26/2018 10:57 AM Age: 78 yrs Reason For Study: SYNCOPE Height: 69 in Weight: 145 lb BSA: 1.8 m2 MMode/2D Measurements & Calculations IVSd: 1.1 cm Ao root diam: 2.8 cm LVIDd: 4.2 cm LA dimension: 3.8 cm LVIDs: 2.6 cm LVPWd: 0.95 cm EDV(Teich): 76.7 ml LVOT diam: 2.0 cm ESV(Teich): 24.3 ml TAPSE: 2.0 cm Doppler Measurements & Calculations MV E max christian: 77.0 cm/sec Ao V2 max: 410.5 cm/sec MV A max christian: 117.0 cm/sec Ao max P.8 mmHg MV E/A: 0.66 Ao V2 mean: 286.4 cm/sec MV dec time: 0.23 sec Ao mean P.5 mmHg Ao V2 VTI: 106.8 cm YVETTE(I,D): 0.66 cm2 AI P1/2t: 424.4 msec YVETTE(V,D): 0.61 cm2 AI max christian: 313.4 cm/sec LV V1 max P.6 mmHg AI max P.3 mmHg LV V1 mean P.5 mmHg AI dec slope: 216.3 cm/sec2 LV V1 max: 81.2 cm/sec LV V1 mean: 57.8 cm/sec LV V1 VTI: 23.0 cm SV(LVOT): 70.3 ml TR max christian: 302.0 cm/sec TR max P.9 mmHg Med Peak E' Christian: 5.2 cm/sec Med E/e': 14.7 Lat Peak E' Christian: 6.1 cm/sec Lat E/e': 12.6 Procedure A two-dimensional transthoracic echocardiogram with color flow and Doppler was performed. Left Ventricle The left ventricular size, thickness and function are normal. The left ventricular ejection fraction is normal. E/A reversal consistent with but not diagnostic of poor LV compliance. The left ventricular w all motion is normal. Right Ventricle The right ventricle is normal in size and function. Atria Normal left and right atrial size and function. Mitral Valve There is mild mitral valve thickening. There is no mitral valve stenosis. There is mild mitral regurg itation. Tricuspid Valve The tricuspid valve is not well visualized. There is no tricuspid stenosis. There is mild tricuspid regurgitation. Right ventricular systolic pressure is elevated at 40-50mmHg. Aortic Valve The aortic valve is not well visualized. Moderate to severe valvular aortic stenosis. Moderate aortic regurgitation. Pulmonic Valve The pulmonic valve is not well visualized. Great Vessels The aortic root is normal size. Pericardium/Pleura There is no pericardial effusion. Interpretation Summary Moderate aortic regurgitation. There is mild mitral regurgitation. The left ventricular ejection fraction is normal. The left ventricular wall motion is normal. E/A reversal consistent with but not diagnostic of poor LV compliance There is mild tricuspid regurgitation. Right ventricular systolic pressure is elevated at 40-50mmHg. The aortic valve is not well visualized. Moderate to severe valvular aortic stenosis. MD Elbert Romero 10/26/2018 02:41 PM
[2018-10-26] MEDS: ATORVASTATIN CA 40 MG TABLET (FP) PO SCH (22:14)
[2018-10-27] MEDS: INSULIN SLIDING SCALE (NOVOLOG) 1 VIAL SQ SCH ×4 (06:14→21:24)
[2018-10-27] MEDS: SODIUM CHLORIDE 0.9%/KCL 20 MEQ/1,000 ML INFUS.BAG IV SCH ×2 (06:14→13:26)
[2018-10-27 08:06] LABS: SERUM IRON SATURATION 13 % (15-55); TOTAL IRON BINDING CAPACITY 244 ug/dL (250-450); UIBC 213 ug/dL (111-343)
[2018-10-27 08:08] LABS: HEMATOCRIT 26.7 % (35.4-49); HEMOGLOBIN 9.1 GM/dL (11.7-16.9); MCH 29.6 pg (25.7-33.7); MCHC 34.1 g/dl (32.0-35.9); MEAN CELL VOLUME 86.6 fl (80-96); MEAN PLT VOLUME 8.9 fl (7.5-11.1); PLATELET COUNT 181 K/MM3 (134-434); RBC 3.08 M/mm3 (4.00-5.60); RDW 15.6 % (11.9-15.9)
[2018-10-27 08:49] LABS: ALBUMIN 2.9 g/dl (3.4-5.0); ALK PHOS 54 U/L (45-117); ANION GAP 5 MMOL/L (8-16); BILIRUBIN,TOTAL 0.6 mg/dL (0.2-1); BLOOD UREA NITROGEN 21 mg/dL (7-18); CALCIUM 8.4 mg/dL (8.5-10.1); CHLORIDE 107 mmol/L (98-107); CO2 27 mmol/L (21-32); CREATININE 0.7 mg/dL (0.55-1.3); GLUCOSE,RANDOM 109 mg/dL (74-106); POTASSIUM 4.8 mmol/L (3.5-5.1); SGOT/AST 24 U/L (15-37); SGPT/ALT 11 U/L (13-61); SODIUM 139 mmol/L (136-145); TOT PROT 5.9 g/dl (6.4-8.2)
--- NOTE | 2018-10-27 08:56 | CONSULT ---
Consult - History of Present Illness History of Present Illness: 78 year old man admitted after syncopal event. He has a history of ASCVD and aortic stenosis. He denies a history of stroke, TIA or transient blindness. He is right handed. Carotid DUplex and CTA show 80% left ICA stenosis. 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 Cardio/Vascular: Yes: Aortic Stenosis (moderate), CAD, HTN, Hyperlipdemia, Other (Moderate bilateral carotid stenosis) Pulmonary: No: Asthma, Bronchitis, Cancer, COPD, O2 Dependent, Pneumonia, Previously Intubated, Pulmonary Embolus, Pulmonary Fibrosis, Sleep Apnea, Other Gastrointestinal: No: Ascites, Cancer, Constipation, Crohn's Disease, Diverticulitis, Diverticulosis, Esophageal Varices, Gastritis, GERD, GI Bleed, Hemorrhoids, Hiatal Hernia, Inflamatory Bowel Disease, Irritable Bowel Disease, Pancreatitis, Peptic Ulcer Disease, Ulcerative Colitis, Other Hepatobiliary: No: Cirrhosis, Cholelithiasis, Cholecystitis, Choledocholithiasis , Hepatitis A, Hepatitis B, Hepatitis C, Other Renal/: No: Renal Failure, Renal Inusuff, BPH, Cancer, Hematuria, Hemodialysis , Neurogenic Bladder, Renal Calculi, UTI, Other Infectious Disease: No: AIDS, C-Diff, Herpes Zoster, HIV, MRSA, STD's, Tuberculosis, VREF, Other Psych: No: Addictions, Anxiety, Bipolar, Depression, Panic, Psychosis, Schizophrenia, Other Musculoskeletal: No: Bursitis, Chronic low back pain, Hemiparesis, Hemiplegia, Osteoarthritis, Paraplegia, Other Rheumatology: No: Fibromyalgia, Gout, Lupus, Rheumatoid Arthritis, Sarcoidosis, Vasculitis, Other Endocrine: Yes: Diabetes Mellitus - Past Surgical History Past Surgical History: Yes: Appendectomy, Stent - Alcohol/Substance Use Hx Alcohol Use: No History of Substance Use: reports: None - Smoking History Smoking history: Former smoker Have you smoked in the past 12 months: No Aproximately how many cigarettes per day: 0 If you are a former smoker, when did you quit?: 30 yrs ago - Social History ADL: Independent History of Recent Travel: No Home Medications - Allergies Allergies/Adverse Reactions: Allergies Allergy/AdvReac Type Severity Reaction Status Date / Time No Known Allergies Allergy Verified 10/25/18 15:50 - Home Medications Home Medications: Ambulatory Orders Atorvastatin Ca [Lipitor] 40 mg PO HS 10/25/18 Brimonidine Tartrate/Timolol [Combigan Eye Drops] 1 drop OU BID 10/25/18 Carbidopa/Levodopa [Carbidopa-Levo ER 50-200 Tab] 1 each PO TID 10/25/18 Carvedilol [Coreg -] 3.125 mg PO BID 10/25/18 Glipizide/Metformin HCl [Glipizide-Metformin 5-500 mg] 1 each PO TID 10/25/18 Lisinopril [Prinivil] 20 mg PO DAILY 10/25/18 Sitagliptin Phosphate [Januvia] 100 mg PO DAILY 10/25/18 Aspirin 81 mg PO DAILY 10/26/18 Folic Acid - 1 mg PO DAILY 10/26/18 Glucosamine/D3/Boswellia Miryam [Osteo Bi-Flex Tablet] 1 each PO DAILY 10/26/18 Vitamin B Complex [B Complex] 1 each PO DAILY 10/26/18 Physical Exam Vital Signs: Vital Signs Temperature 97.8 F 10/27/18 08:34 Pulse Rate 63 10/27/18 08:34 Respiratory Rate 18 10/27/18 08:34 Blood Pressure 156/78 10/27/18 08:34 O2 Sat by Pulse Oximetry (%) 98 10/27/18 04:00 Constitutional: Yes: No Distress Eyes: Yes: EOM Intact Neck: Yes: Supple Cardiovascular: Yes: Regular Rate and Rhythm Respiratory: Yes: Regular Gastrointestinal: Yes: Soft Extremities: Yes: WNL Neurological: Yes: Alert, Oriented ...Motor Strength: WNL Labs: CBC, BMP 10/27/18 07:05 10/27/18 06:00 Imaging - Results Cat Scan: Image Reviewed Ultrasound: Image Reviewed Problem List - Problems (1) Carotid stenosis Assessment/Plan: Significant stenosis of left ICA without history of stroke or TIA. Recent syncope would not be attributable to a unilateral carotid stenosis. Management of unilateral asymptomatic carotid stenosis with aspirin, Plavix and Statin is recommended. If symptoms develop or if stenosis progresses to critical level, carotid revascularization with surgery or transcervical stenting would be appropriate. Code(s): I65.29 - OCCLUSION AND STENOSIS OF UNSPECIFIED CAROTID ARTERY Qualifiers: Laterality: left Qualified Code(s): I65.22 - Occlusion and stenosis of left carotid artery
[2018-10-27] MEDS: LISINOPRIL 10 MG TABLET (FP) PO SCH (09:08)
[2018-10-27] MEDS: FOLIC ACID 1 MG TABLET (FP) PO SCH (09:08)
[2018-10-27] MEDS: CARVEDILOL 3.125 MG TABLET (FP) PO SCH ×2 (09:08→21:24)
[2018-10-27] MEDS: CHOLECALCIFEROL (VITAMIN D3) 1,000 UNIT TABLET (FP) PO SCH (09:08)
[2018-10-27] MEDS: BRIMONIDINE TARTRATE 0.2% OPHTHALMIC 5 ML BOTTLE OU SCH ×2 (09:10→23:40)
[2018-10-27] MEDS: TIMOLOL 0.5% OPHTHALMIC SOL 5 ML BOTTLE OU SCH ×2 (09:11→23:50)
--- NOTE | 2018-10-27 09:59 | PN ---
Progress Note, Physician Chief Complaint: tele: nsr, sinus mik at night - Current Medication List Current Medications: Active Medications Acetaminophen (Tylenol -) 650 mg PO Q6H PRN PRN Reason: PAIN OR FEVER Last Admin: 10/26/18 14:01 Dose: 650 mg Aspirin (Asa -) 81 mg PO DAILY [facility] Last Admin: 10/27/18 09:16 Dose: 81 mg Atorvastatin Calcium (Lipitor -) 40 mg PO HS [facility] Last Admin: 10/26/18 22:14 Dose: 40 mg Brimonidine Tartrate (Alphagan 0.2% -) 1 drop OU BID [facility] Last Admin: 10/27/18 09:10 Dose: 1 drop Carbidopa/Levodopa (Sinemet *Cr* 50/200 -) 1 combo PO TID [facility] Last Admin: 10/27/18 06:12 Dose: 1 combo Carvedilol (Coreg -) 3.125 mg PO BID [facility] Last Admin: 10/27/18 09:08 Dose: 3.125 mg Cholecalciferol (Vitamin D3 -) 1,000 unit PO DAILY [facility] Last Admin: 10/27/18 09:08 Dose: 1,000 unit Folic Acid (Folic Acid -) 1 mg PO DAILY [facility] Last Admin: 10/27/18 09:08 Dose: 1 mg Potassium Chloride/Sodium Chloride (Ns+20 Meq Kcl -) 20 meq in 1,000 mls @ 75 mls/hr IV ASDIR [facility] Last Admin: 10/27/18 06:14 Dose: 75 mls/hr Insulin Aspart (Novolog Vial Sliding Scale -) 1 vial SQ ACHS [facility]; Protocol Last Admin: 10/27/18 06:14 Dose: Not Given Lisinopril (Prinivil) 10 mg PO DAILY [facility] Last Admin: 10/27/18 09:08 Dose: 10 mg Timolol Maleate (Timoptic 0.5%) 1 drop OU BID [facility] Last Admin: 10/27/18 09:11 Dose: 1 drop - Objective Vital Signs: Vital Signs Temperature 97.8 F 10/27/18 08:34 Pulse Rate 63 10/27/18 08:34 Respiratory Rate 18 10/27/18 08:34 Blood Pressure 156/78 10/27/18 08:34 O2 Sat by Pulse Oximetry (%) 98 10/27/18 04:00 Constitutional: Yes: No Distress, Calm Cardiovascular: Yes: Regular Rate and Rhythm (2/6 [place] RSB) Respiratory: Yes: CTA Bilaterally Gastrointestinal: Yes: Soft Edema: No Neurological: Yes: Alert, Oriented Labs: CBC, BMP 10/27/18 07:05 10/27/18 06:00 - ....Imaging EKG: Image Reviewed Problem List - Problems (1) Syncope and collapse Code(s): R55 - SYNCOPE AND COLLAPSE (2) Aortic valve stenosis Code(s): I35.0 - NONRHEUMATIC AORTIC (VALVE) STENOSIS Qualifiers: Cardiac valve disease etiology: nonrheumatic Qualified Code(s): I35.0 - Nonrheumatic aortic (valve) stenosis (3) Carotid stenosis Code(s): I65.29 - OCCLUSION AND STENOSIS OF UNSPECIFIED CAROTID ARTERY Qualifiers: Laterality: left Qualified Code(s): I65.22 - Occlusion and stenosis of left carotid artery (4) CAD (coronary artery disease) Code(s): I25.10 - ATHSCL HEART DISEASE OF [place] CORONARY ARTERY W/O ANG PCTRS Qualifiers: Coronary Disease-Associated Artery/Lesion type: [place] artery [place] vs. transplanted heart: [place] heart Associated angina: with stable angina Qualified Code(s): I25.118 - Atherosclerotic heart disease of [place] coronary artery with other forms of angina pectoris (5) Diabetes mellitus Code(s): E11.9 - TYPE 2 DIABETES MELLITUS WITHOUT COMPLICATIONS Qualifiers: Diabetes mellitus type: type 2 Diabetes mellitus complication status: with circulatory complication (6) Parkinson disease Code(s): G20 - PARKINSON'S DISEASE Assessment/Plan IMP: Syncope Aortic stenosis, moderate to severe CAD s/p PCI Carotid stenosis, moderate to severe RBBB DM Parkinon's disease Anemia REC: Tele does not reveal arrhythmia to explain sx Do not believe the carotid stenosis is the etiology, although it will need to be addressed in future w/ Vascular sx Possibly severe - this is the more likely cause: will tx to R/L heart cath at [facility] Patient agrees.
[2018-10-27] MEDS ORDERED: ASPIRIN 81 MG CHEWABLE TABLETS PO SCH (10:00)
--- NOTE | 2018-10-27 10:25 | PN ---
Progress Note (short form) - Note Progress Note: No pain No dizziness no chest pain Vital Signs - 24 hr 10/26/18 10/26/18 10/26/18 14:00 17:00 20:00 Temperature 97.8 F 97.3 F L 97.3 F L Pulse Rate 57 L 53 L 54 L Respiratory 20 20 Rate Blood Pressure 141/64 139/57 L 143/58 L O2 Sat by Pulse 98 Oximetry (%) 10/27/18 10/27/18 10/27/18 02:27 04:00 05:41 Temperature 97.8 F 97.8 F Pulse Rate 50 L 51 L Respiratory 20 18 18 Rate Blood Pressure 119/49 L 178/68 H O2 Sat by Pulse 98 Oximetry (%) 10/27/18 08:34 Temperature 97.8 F Pulse Rate 63 Respiratory 18 Rate Blood Pressure 156/78 O2 Sat by Pulse Oximetry (%) Current Medications Generic Name Dose Route Start Last Admin Trade Name Freq PRN Reason Stop Dose Admin Acetaminophen 650 mg 10/26/18 01:23 10/26/18 14:01 Tylenol - PO 650 mg Q6H PRN Administration PAIN OR FEVER Aspirin 81 mg 10/27/18 10:00 10/27/18 09:16 Asa - PO 81 mg DAILY PANKAJ Administration Atorvastatin Calcium 40 mg 10/25/18 22:00 10/26/18 22:14 Lipitor - PO 40 mg HS PANKAJ Administration Brimonidine Tartrate 1 drop 10/25/18 22:30 10/27/18 09:10 Alphagan 0.2% - OU 1 drop BID PANKAJ Administration Carbidopa/Levodopa 1 combo 10/25/18 22:00 10/27/18 06:12 Sinemet *Cr* 50/200 - PO 1 combo TID PANKAJ Administration Carvedilol 3.125 mg 10/25/18 22:00 10/27/18 09:08 Coreg - PO 3.125 mg BID PANKAJ Administration Cholecalciferol 1,000 unit 10/26/18 10:00 10/27/18 09:08 Vitamin D3 - PO 1,000 unit DAILY PANKAJ Administration Folic Acid 1 mg 10/26/18 10:00 10/27/18 09:08 Folic Acid - PO 1 mg DAILY PANKAJ Administration Potassium Chloride/Sodium Chloride 20 meq in 1,000 mls @ 75 mls/hr 10/26/18 10 :45 10/27/18 06:14 Ns+20 Meq Kcl - IV 75 mls/hr ASDIR PANKAJ Administration Insulin Aspart 1 vial 10/25/18 22:00 10/27/18 11:31 Novolog Vial Sliding Scale - SQ 4 units ACHS PANKAJ Administration Protocol Lisinopril 10 mg 10/26/18 10:00 10/27/18 09:08 Prinivil PO 10 mg DAILY PANKAJ Administration Timolol Maleate 1 drop 10/25/18 22:30 10/27/18 09:11 Timoptic 0.5% OU 1 drop BID PANKAJ Administration S1 S2 RRR, murmur+ Lungs clear Abd- soft, NT no edema Abrasions to arms B/L, rt knee abrasion PLAN neck CTA noted Vascular consult appreciated spoke with [facility] -- carotid stenosis does not explain his symptoms- he will be trasferred to [facility] for Rt heart cath will need to address the carotid stenosis afterwards pt will have to follow up with Vascular as outpt Problem List - Problems (1) Aortic valve stenosis Code(s): I35.0 - NONRHEUMATIC AORTIC (VALVE) STENOSIS Qualifiers: Cardiac valve disease etiology: nonrheumatic Qualified Code(s): I35.0 - Nonrheumatic aortic (valve) stenosis (2) CAD (coronary artery disease) Code(s): I25.10 - ATHSCL HEART DISEASE OF [place] CORONARY ARTERY W/O ANG PCTRS Qualifiers: Coronary Disease-Associated Artery/Lesion type: [place] artery [place] vs. transplanted heart: [place] heart Associated angina: with stable angina Qualified Code(s): I25.118 - Atherosclerotic heart disease of [place] coronary artery with other forms of angina pectoris (3) Carotid stenosis Code(s): I65.29 - OCCLUSION AND STENOSIS OF UNSPECIFIED CAROTID ARTERY Qualifiers: Laterality: left Qualified Code(s): I65.22 - Occlusion and stenosis of left carotid artery (4) Diabetes mellitus Code(s): E11.9 - TYPE 2 DIABETES MELLITUS WITHOUT COMPLICATIONS Qualifiers: Diabetes mellitus type: type 2 Diabetes mellitus complication status: with circulatory complication (5) Fall Code(s): W19.XXXA - UNSPECIFIED FALL, INITIAL ENCOUNTER (6) HTN (hypertension) Code(s): I10 - ESSENTIAL (PRIMARY) HYPERTENSION (7) Syncope and collapse Code(s): R55 - SYNCOPE AND COLLAPSE
--- NOTE | 2018-10-27 12:42 | DS ---
Physical Examination Vital Signs: Vital Signs Temperature 97.8 F 10/27/18 08:34 Pulse Rate 63 10/27/18 08:34 Respiratory Rate 18 10/27/18 08:34 Blood Pressure 156/78 10/27/18 08:34 O2 Sat by Pulse Oximetry (%) 98 10/27/18 04:00 Labs: CBC, BMP 10/27/18 07:05 10/27/18 06:00 Discharge Summary Reason For Visit: ANEMIA,SYNCOPE AND COLLAPSE Current Active Problems Anemia (Acute) Aortic valve stenosis (Acute) CAD (coronary artery disease) (Acute) Carotid stenosis (Acute) Chest pain (Acute) Diabetes mellitus (Acute) Fall (Acute) Glaucoma (Acute) HLD (hyperlipidemia) (Acute) HTN (hypertension) (Acute) Parkinson disease (Acute) Syncope and collapse (Acute) Hospital Course: see progress note pt being transferred to [facility] for rt heart cath for aortic stenosis severe He has left ICA stenosis 80%- seen by Vascular-- not a cause for syncopal episodes But will need to address this after rt heart cath Condition: Guarded - Instructions Referrals: Kiko Brower MD [Primary Care Provider] - Disposition: TRANSFER ACUTE CARE/OTHER HOSP - Home Medications Comprehensive Discharge Medication List: Ambulatory Orders Atorvastatin Ca [Lipitor] 40 mg PO HS 10/25/18 Brimonidine Tartrate/Timolol [Combigan Eye Drops] 1 drop OU BID 10/25/18 Carbidopa/Levodopa [Carbidopa-Levo ER 50-200 Tab] 1 each PO TID 10/25/18 Carvedilol [Coreg -] 3.125 mg PO BID 10/25/18 Glipizide/Metformin HCl [Glipizide-Metformin 5-500 mg] 1 each PO TID 10/25/18 Lisinopril [Prinivil] 20 mg PO DAILY 10/25/18 Sitagliptin Phosphate [Januvia] 100 mg PO DAILY 10/25/18 Aspirin 81 mg PO DAILY 10/26/18 Folic Acid - 1 mg PO DAILY 10/26/18 Glucosamine/D3/Boswellia Miryam [Osteo Bi-Flex Tablet] 1 each PO DAILY 10/26/18 Vitamin B Complex [B Complex] 1 each PO DAILY 10/26/18
[2018-10-27] MEDS ORDERED: PT OWN MED DRAWER 7, Y5N ONE (13:14)
[2018-10-27] MEDS: ATORVASTATIN CA 40 MG TABLET (FP) PO SCH (21:24)
[2018-10-27] MEDS: ACETAMINOPHEN 325 MG TABLET (FP) PO PRN (21:25)
[2018-10-28 05:50] VITALS: BP 162/69; PULSE 58; TEMP 98
[2018-10-28] MEDS: INSULIN SLIDING SCALE (NOVOLOG) 1 VIAL SQ SCH (06:35)
== END 2018-10-28 07:07 | disposition short-term general hospital (02) | DRG 307 ==
LOC: JER 15:41 → JERBED 20:27 → J4W 10-26 00:09 → OBSVTOIN 10-26 10:52
PROVIDERS: ADMIT Internal Medicine; ATTEND Internal Medicine
DX: I35.0 Nonrheumatic aortic (valve) stenosis (principal); I10 Essential (primary) hypertension; E11.9 Type 2 diabetes mellitus without complications; I25.10 Atherosclerotic heart disease of native coronary artery without angina pectoris; G20 Parkinson's disease; Z79.84 Long term (current) use of oral hypoglycemic drugs; H40.9 Unspecified glaucoma; D50.9 Iron deficiency anemia, unspecified; I44.0 Atrioventricular block, first degree; E78.5 Hyperlipidemia, unspecified; I45.10 Unspecified right bundle-branch block; I65.22 Occlusion and stenosis of left carotid artery; R55 Syncope and collapse
CPT/HCPCS: 36415; 70450-TC; 70498-TC; 72070-TC-FY; 72100-TC-FY; 73560-TC-RT-FY; 80048; 80053; 80061; 81003; 82272; 82550; 82553; 82728; 82962; 83036; 83540; 83550; 83721; 83735; 84100; 84484; 85025; 85027; 87086; 93005; 93010; 93306-TC; 93880-TC; 97116-GP; 97161-GP; 99283-25; G0378

== ENCOUNTER 2021-02-22 20:56 | Inpatient (IN) | payer OTHER, BC ==
[2021-02-22 22:38] LABS: BASO % 2.4 % (0-2.0); EOS % 1.5 % (0-4.5); HEMATOCRIT 28.6 % (35.4-49); HEMOGLOBIN 9.8 GM/dL (11.7-16.9); LYMPH % 7.9 % (8-40); MCH 30.4 pg (25.7-33.7); MCHC 34.2 g/dl (32.0-35.9); MEAN CELL VOLUME 88.9 fl (80-96); MONO % 6.8 % (3.8-10.2); NEUT % 81.4 % (42.8-82.8); PLATELET COUNT 155 K/MM3 (134-434); RBC 3.21 M/mm3 (4.00-5.60); RDW 15.2 % (11.9-15.9); WHITE BLOOD COUNT 6.5 K/mm3 (4.0-10.0)
[2021-02-22 22:42] LABS: URINE APPEARANCE CLEAR; URINE BILIRUBIN NEGATIVE (NEGATIVE); URINE COLOR DK YELLOW; URINE GLUCOSE (UA) NEGATIVE (NEGATIVE); URINE KETONE TRACE (NEGATIVE); URINE LEUK ESTERASE NEGATIVE (NEGATIVE); URINE NITRITE NEGATIVE (NEGATIVE); URINE PROTEIN NEGATIVE (NEGATIVE)
[2021-02-22 22:46] LABS: INR 1.29 (0.83-1.09); PROTHROMBIN TIME (PATIENT) 15.8 SEC (9.7-13.0)
[2021-02-22] MEDS ORDERED: VANCOMYCIN 1,000 MG in DEXTROSE 5%-WATER - 250 ML IVPB ONE (22:46)
[2021-02-22] MEDS ORDERED: CEFAZOLIN 1 GM in DEXTROSE 5%-WATER - 50 ML IVPB ONE (22:47)
[2021-02-22] MEDS ORDERED: SODIUM CHLORIDE 0.9% 500 ML INFUS.BAG IV ONE (22:48)
[2021-02-22 22:49] LABS: ACTIVATED PTT 25.3 SECONDS (25.2-36.5)
[2021-02-22] MEDS ORDERED: BACITRACIN 15 GM TUBE TOPICAL OINTMENT ONE (22:55)
[2021-02-22 22:56] LABS: CHLORIDE 103 mmol/L (98-107); SODIUM 136 mmol/L (136-145)
[2021-02-22 22:59] LABS: ALBUMIN 3.3 g/dl (3.4-5.0); ANION GAP 4 MMOL/L (8-16); BLOOD UREA NITROGEN 30.3 mg/dL (7-18); CALCIUM 8.5 mg/dL (8.5-10.1); CO2 29 mmol/L (21-32); GLUCOSE,RANDOM 199 mg/dL (74-106); MAGNESIUM 1.6 mg/dL (1.8-2.4)
[2021-02-22 23:02] LABS: SGPT/ALT 9 U/L (13-61)
[2021-02-22 23:03] LABS: CREATININE 1.1 mg/dL (0.55-1.3); SGOT/AST 29 U/L (15-37)
[2021-02-22 23:04] LABS: ALK PHOS 82 U/L (45-117); BILIRUBIN,TOTAL 0.6 mg/dL (0.2-1); TOT PROT 6.8 g/dl (6.4-8.2)
[2021-02-22 23:08] LABS: N-TERMINAL BNP 473.8 pg/ml (5-450)
[2021-02-22] MEDS ORDERED: CEFAZOLIN 1 GM/D5W 1 GM/50 ML BAG ONE (23:10)
[2021-02-23] MEDS ORDERED: VANCOMYCIN 1 GRAM (PRE-DOCKED) 1,000 MG/250 ML BAG IVPB ONE (00:22)
[2021-02-23] MEDS ORDERED: FUROSEMIDE 40 MG/4 ML INJECTABLE VIAL ONE (00:34)
[2021-02-23] MEDS ORDERED: FUROSEMIDE 40 MG/4 ML INJECTABLE VIAL IVPUSH ONE ×3 (00:40→12:30)
[2021-02-23 03:21] VITALS: BMI 23.8
[2021-02-23] MEDS ORDERED: MAGNESIUM SULF 50% (8.12 MEQ/2 ML-1 GM VIAL) IVPB ONE (06:21)
[2021-02-23 07:55] LABS: BASO % 0.6 % (0-2.0); EOS % 0.4 % (0-4.5); HEMATOCRIT 27.6 % (35.4-49); HEMOGLOBIN 9.6 GM/dL (11.7-16.9); MCH 30.5 pg (25.7-33.7); MCHC 34.7 g/dl (32.0-35.9); MEAN CELL VOLUME 87.9 fl (80-96); MEAN PLT VOLUME 9.2 fl (7.5-11.1); MONO % 15.7 % (3.8-10.2); NEUT % 71.3 % (42.8-82.8); PLATELET COUNT 159 K/MM3 (134-434); RBC 3.14 M/mm3 (4.00-5.60); RDW 14.6 % (11.9-15.9); WHITE BLOOD COUNT 6.5 K/mm3 (4.0-10.0)
[2021-02-23] MEDS: sitaGLIPtin PHOSPHATE 50 MG TABLET PO SCH (08:00)
[2021-02-23] MEDS: TAMSULOSIN HCL 0.4 MG CAP PO SCH (08:00)
[2021-02-23 08:14] LABS: ALBUMIN 3.2 g/dl (3.4-5.0); BLOOD UREA NITROGEN 24.7 mg/dL (7-18); CALCIUM 8.6 mg/dL (8.5-10.1); MAGNESIUM 1.7 mg/dL (1.8-2.4)
[2021-02-23 08:18] LABS: CREATININE 0.8 mg/dL (0.55-1.3)
[2021-02-23 08:20] LABS: BILIRUBIN,TOTAL 0.6 mg/dL (0.2-1); TOT PROT 6.6 g/dl (6.4-8.2)
[2021-02-23] MEDS ORDERED: PT OWN MED DRAWER 7, Y5N ONE ×2 (08:55→21:50)
[2021-02-23] MEDS ORDERED: ceFAZolin SODIUM 1 GM VIAL ONE ×3 (08:56→17:43)
[2021-02-23] MEDS ORDERED: DEXTROSE 5%-WATER - 50 ML IVPB ONE ×2 (08:56→17:43)
[2021-02-23] MEDS: metoPROLOL SUCCINATE 25 MG TAB.SR.24H (FP) PO SCH ×2 (09:03→22:22)
[2021-02-23] MEDS: CEFAZOLIN 1 GM in DEXTROSE 5%-WATER - 1 GM/50 ML IVPB IVPB SCH ×2 (09:03→17:49)
[2021-02-23] MEDS: ASPIRIN 81 MG CHEWABLE TABLETS PO SCH (09:03)
[2021-02-23] MEDS: FAMOTIDINE 20 MG TABLET PO SCH (09:04)
[2021-02-23 11:23] LABS: URIC ACID 4.9 mg/dL (2.6-7.2)
[2021-02-23] MEDS ORDERED: predniSONE 20 MG TABLET (UD) PO ONE (15:18)
[2021-02-23] MEDS: FLUTICASONE PROP 0.05% 16 GM NASAL SPRAY NS SCH (16:33)
[2021-02-23] MEDS: INSULIN SLIDING SCALE (NOVOLOG) 1 VIAL SQ SCH ×2 (17:48→22:26)
[2021-02-23] MEDS: DOCUSATE SODIUM 100 MG CAPSULE (FP) PO SCH (22:24)
[2021-02-23] MEDS ORDERED: MELATONIN 5 MG TABLETS PO ONE (23:58)
[2021-02-24] MEDS ORDERED: DEXTROSE 5%-WATER - 50 ML IVPB ONE ×3 (02:04→17:28)
[2021-02-24] MEDS ORDERED: ceFAZolin SODIUM 1 GM VIAL ONE ×3 (02:04→17:28)
[2021-02-24] MEDS: CEFAZOLIN 1 GM in DEXTROSE 5%-WATER - 1 GM/50 ML IVPB IVPB SCH ×3 (02:20→17:33)
[2021-02-24] MEDS: INSULIN SLIDING SCALE (NOVOLOG) 1 VIAL SQ SCH ×4 (06:02→21:00)
[2021-02-24] MEDS: sitaGLIPtin PHOSPHATE 50 MG TABLET PO SCH (06:10)
[2021-02-24] MEDS: TAMSULOSIN HCL 0.4 MG CAP PO SCH (08:42)
[2021-02-24] MEDS: ASPIRIN 81 MG CHEWABLE TABLETS PO SCH (10:16)
[2021-02-24] MEDS: metoPROLOL SUCCINATE 25 MG TAB.SR.24H (FP) PO SCH ×2 (10:16→21:01)
[2021-02-24] MEDS: FLUTICASONE PROP 0.05% 16 GM NASAL SPRAY NS SCH (10:16)
[2021-02-24] MEDS: FAMOTIDINE 20 MG TABLET PO SCH (10:16)
[2021-02-24] MEDS: ENOXAPARIN NA (PORCINE) 40 MG/0.4 ML DISP.SYRIN SQ SCH (12:50)
[2021-02-24] MEDS ORDERED: PT OWN MED DRAWER 7, Y5N ONE ×3 (14:21→17:29)
[2021-02-24] MEDS: TIMOLOL 0.5% OPHTHALMIC SOL 5 ML BOTTLE OU SCH (21:01)
[2021-02-24] MEDS: DOCUSATE SODIUM 100 MG CAPSULE (FP) PO SCH (21:01)
[2021-02-24] MEDS: BACITRACIN 15 GM TUBE TOPICAL OINTMENT TP SCH (21:01)
[2021-02-24] MEDS: BRIMONIDINE TARTRATE 0.2% OPHTHALMIC 5 ML BOTTLE OU SCH (21:01)
[2021-02-24] MEDS: LATANOPROST 0.005% OPHTH SOLN 2.5ML BOTTLE OU SCH (21:02)
[2021-02-24] MEDS: MELATONIN 5 MG TABLETS PO PRN (21:41)
[2021-02-25] MEDS ORDERED: ceFAZolin SODIUM 1 GM VIAL ONE ×3 (00:12→17:05)
[2021-02-25] MEDS: CEFAZOLIN 1 GM in DEXTROSE 5%-WATER - 1 GM/50 ML IVPB IVPB SCH ×3 (01:27→17:10)
[2021-02-25] MEDS ORDERED: PT OWN MED DRAWER 7, Y5N ONE ×2 (05:29→13:11)
[2021-02-25] MEDS: sitaGLIPtin PHOSPHATE 50 MG TABLET PO SCH (06:03)
[2021-02-25] MEDS: INSULIN SLIDING SCALE (NOVOLOG) 1 VIAL SQ SCH ×4 (06:03→21:45)
[2021-02-25 06:08] LABS: ANTI-DNAse B <78 U/mL (0-120)
[2021-02-25] MEDS ORDERED: INSULIN (NOVOLOG) ASPART 100 UNITS/ML 10ML VIAL ONE ×2 (07:56→13:20)
[2021-02-25] MEDS: TAMSULOSIN HCL 0.4 MG CAP PO SCH (08:34)
[2021-02-25] MEDS ORDERED: DEXTROSE 5%-WATER - 50 ML IVPB ONE ×2 (09:28→17:06)
[2021-02-25] MEDS: ASPIRIN 81 MG CHEWABLE TABLETS PO SCH (09:39)
[2021-02-25] MEDS: ENOXAPARIN NA (PORCINE) 40 MG/0.4 ML DISP.SYRIN SQ SCH (09:39)
[2021-02-25] MEDS: metoPROLOL SUCCINATE 25 MG TAB.SR.24H (FP) PO SCH ×2 (09:39→21:44)
[2021-02-25] MEDS: FAMOTIDINE 20 MG TABLET PO SCH (09:39)
[2021-02-25] MEDS: FLUTICASONE PROP 0.05% 16 GM NASAL SPRAY NS SCH (09:40)
[2021-02-25] MEDS: BACITRACIN 15 GM TUBE TOPICAL OINTMENT TP SCH ×2 (09:40→21:46)
[2021-02-25] MEDS: BRIMONIDINE TARTRATE 0.2% OPHTHALMIC 5 ML BOTTLE OU SCH ×2 (09:41→21:46)
[2021-02-25] MEDS: TIMOLOL 0.5% OPHTHALMIC SOL 5 ML BOTTLE OU SCH ×2 (09:42→21:47)
[2021-02-25] MEDS ORDERED: [UNRECOGNIZED DRUG - OTHER] PO SCH (10:00)
[2021-02-25] MEDS ORDERED: OMEGA PO SCH (10:00)
[2021-02-25] MEDS ORDERED: D3 PO SCH (10:00)
[2021-02-25] MEDS ORDERED: DHA PO SCH (10:00)
[2021-02-25] MEDS ORDERED: EPA PO SCH (10:00)
[2021-02-25] MEDS ORDERED: FISH OIL PO SCH (10:00)
[2021-02-25] MEDS ORDERED: [UNRECOGNIZED DRUG - OTHER] PO SCH (10:00)
[2021-02-25] MEDS: DOCUSATE SODIUM 100 MG CAPSULE (FP) PO SCH (21:44)
[2021-02-25] MEDS: LATANOPROST 0.005% OPHTH SOLN 2.5ML BOTTLE OU SCH (21:47)
[2021-02-25] MEDS: MELATONIN 5 MG TABLETS PO PRN (21:49)
[2021-02-26 00:08] LABS: CYCLIC CITRULLINE PEPTIDE AB 6 units (0-19)
[2021-02-26] MEDS ORDERED: ceFAZolin SODIUM 1 GM VIAL ONE (02:38)
[2021-02-26] MEDS ORDERED: DEXTROSE 5%-WATER - 50 ML IVPB ONE (02:39)
[2021-02-26] MEDS: CEFAZOLIN 1 GM in DEXTROSE 5%-WATER - 1 GM/50 ML IVPB IVPB SCH (02:57)
[2021-02-26] MEDS ORDERED: PT OWN MED DRAWER 7, Y5N ONE ×3 (07:01→17:10)
[2021-02-26] MEDS: sitaGLIPtin PHOSPHATE 50 MG TABLET PO SCH (07:05)
[2021-02-26] MEDS: INSULIN SLIDING SCALE (NOVOLOG) 1 VIAL SQ SCH ×4 (07:08→21:57)
[2021-02-26] MEDS: TAMSULOSIN HCL 0.4 MG CAP PO SCH (07:57)
[2021-02-26] MEDS: ENOXAPARIN NA (PORCINE) 40 MG/0.4 ML DISP.SYRIN SQ SCH (10:47)
[2021-02-26] MEDS: ASPIRIN 81 MG CHEWABLE TABLETS PO SCH (10:47)
[2021-02-26] MEDS: metoPROLOL SUCCINATE 25 MG TAB.SR.24H (FP) PO SCH ×2 (10:47→21:50)
[2021-02-26] MEDS: FAMOTIDINE 20 MG TABLET PO SCH (10:47)
[2021-02-26] MEDS: BRIMONIDINE TARTRATE 0.2% OPHTHALMIC 5 ML BOTTLE OU SCH ×2 (10:48→21:52)
[2021-02-26] MEDS: BACITRACIN 15 GM TUBE TOPICAL OINTMENT TP SCH ×2 (10:48→21:51)
[2021-02-26] MEDS: FLUTICASONE PROP 0.05% 16 GM NASAL SPRAY NS SCH (10:48)
[2021-02-26] MEDS: TIMOLOL 0.5% OPHTHALMIC SOL 5 ML BOTTLE OU SCH ×2 (10:49→21:52)
[2021-02-26] MEDS ORDERED: INSULIN (NOVOLOG) ASPART 100 UNITS/ML 10ML VIAL ONE ×2 (12:18→17:11)
[2021-02-26] MEDS: MELATONIN 5 MG TABLETS PO PRN (21:50)
[2021-02-26] MEDS: DOCUSATE SODIUM 100 MG CAPSULE (FP) PO SCH (21:51)
[2021-02-26] MEDS: LATANOPROST 0.005% OPHTH SOLN 2.5ML BOTTLE OU SCH (21:52)
[2021-02-26] MEDS: CEPHALEXIN MONOHYDRATE 500 MG CAPSULE (UD) PO SCH (21:55)
[2021-02-26] MEDS ORDERED: QUEtiapine FUMARATE 25 MG TABLET PO SCH (22:00)
[2021-02-27] MEDS ORDERED: PT OWN MED DRAWER 7, Y5N ONE ×5 (04:54→17:10)
[2021-02-27] MEDS: CEPHALEXIN MONOHYDRATE 500 MG CAPSULE (UD) PO SCH ×3 (06:05→21:20)
[2021-02-27] MEDS: sitaGLIPtin PHOSPHATE 50 MG TABLET PO SCH (06:25)
[2021-02-27] MEDS: INSULIN SLIDING SCALE (NOVOLOG) 1 VIAL SQ SCH ×4 (06:28→21:33)
[2021-02-27] MEDS: FAMOTIDINE 20 MG TABLET PO SCH (10:20)
[2021-02-27] MEDS: TAMSULOSIN HCL 0.4 MG CAP PO SCH (10:20)
[2021-02-27] MEDS: ASPIRIN 81 MG CHEWABLE TABLETS PO SCH (10:20)
[2021-02-27] MEDS: metoPROLOL SUCCINATE 25 MG TAB.SR.24H (FP) PO SCH ×2 (10:21→21:20)
[2021-02-27] MEDS: FLUTICASONE PROP 0.05% 16 GM NASAL SPRAY NS SCH (10:22)
[2021-02-27] MEDS: BRIMONIDINE TARTRATE 0.2% OPHTHALMIC 5 ML BOTTLE OU SCH ×2 (10:22→21:21)
[2021-02-27] MEDS: BACITRACIN 15 GM TUBE TOPICAL OINTMENT TP SCH ×2 (10:26→21:21)
[2021-02-27] MEDS: TIMOLOL 0.5% OPHTHALMIC SOL 5 ML BOTTLE OU SCH ×2 (10:26→21:21)
[2021-02-27] MEDS: ENOXAPARIN NA (PORCINE) 40 MG/0.4 ML DISP.SYRIN SQ SCH (10:26)
[2021-02-27] MEDS ORDERED: QUEtiapine FUMARATE 25 MG TABLET PO SCH (20:18)
[2021-02-27] MEDS: DOCUSATE SODIUM 100 MG CAPSULE (FP) PO SCH (21:20)
[2021-02-27] MEDS: LATANOPROST 0.005% OPHTH SOLN 2.5ML BOTTLE OU SCH (21:21)
[2021-02-28] MEDS ORDERED: PT OWN MED DRAWER 7, Y5N ONE (05:42)
[2021-02-28] MEDS: CEPHALEXIN MONOHYDRATE 500 MG CAPSULE (UD) PO SCH (05:50)
[2021-02-28] MEDS: sitaGLIPtin PHOSPHATE 50 MG TABLET PO SCH (06:02)
[2021-02-28] MEDS: INSULIN SLIDING SCALE (NOVOLOG) 1 VIAL SQ SCH (06:02)
[2021-02-28 09:17] VITALS: BP 126/54; PULSE 72; TEMP 97.8
[2021-02-28] MEDS: ENOXAPARIN NA (PORCINE) 40 MG/0.4 ML DISP.SYRIN SQ SCH (09:47)
[2021-02-28] MEDS: BRIMONIDINE TARTRATE 0.2% OPHTHALMIC 5 ML BOTTLE OU SCH (09:48)
[2021-02-28] MEDS: metoPROLOL SUCCINATE 25 MG TAB.SR.24H (FP) PO SCH (09:48)
[2021-02-28] MEDS: FAMOTIDINE 20 MG TABLET PO SCH (09:48)
[2021-02-28] MEDS: ASPIRIN 81 MG CHEWABLE TABLETS PO SCH (09:48)
[2021-02-28] MEDS: TAMSULOSIN HCL 0.4 MG CAP PO SCH (09:48)
[2021-02-28] MEDS: FLUTICASONE PROP 0.05% 16 GM NASAL SPRAY NS SCH (09:49)
[2021-02-28] MEDS: TIMOLOL 0.5% OPHTHALMIC SOL 5 ML BOTTLE OU SCH (09:49)
[2021-02-28] MEDS: BACITRACIN 15 GM TUBE TOPICAL OINTMENT TP SCH (09:49)
== END 2021-02-28 13:58 | DRG 57 ==
LOC: JER 20:56 → JERBED 23:37 → J8W 02-23 02:16
PROVIDERS: ADMIT Internal Medicine; ATTEND Internal Medicine
DX: G20 Parkinson's disease (principal); L03.114 Cellulitis of left upper limb; I25.10 Atherosclerotic heart disease of native coronary artery without angina pectoris; I10 Essential (primary) hypertension; E78.5 Hyperlipidemia, unspecified; Z95.5 Presence of coronary angioplasty implant and graft; E11.40 Type 2 diabetes mellitus with diabetic neuropathy, unspecified; I35.0 Nonrheumatic aortic (valve) stenosis; I65.23 Occlusion and stenosis of bilateral carotid arteries; S60.212A Contusion of left wrist, initial encounter; S60.211A Contusion of right wrist, initial encounter; D64.9 Anemia, unspecified; R29.6 Repeated falls; E83.42 Hypomagnesemia; R44.1 Visual hallucinations; W18.39XA Other fall on same level, initial encounter; Y92.098 Other place in other non-institutional residence as the place of occurrence of the external cause
CPT/HCPCS: 36415; 70450-TC; 71045-TC-FY; 72125-TC; 73110-TC-LT-FY; 73130-TC-LT-FY; 80053; 81003; 82962; 83036; 83735; 83880; 84484; 84550; 85025; 85610; 85651; 85730; 86038; 86140; 86200; 86215; 86431; 87040; 87086; 93005; 93010; 93971-TC; 97116-GP; 97161-GP; 99285-25; C9803; U0003; U0005

== ENCOUNTER 2022-01-15 11:03 | Inpatient (IN) | payer OTHER ==
[2022-01-15 12:52] LABS: BASO % 0.7 % (0-2.0); EOS % 0.3 % (0-4.5); HEMATOCRIT 34.1 % (35.4-49); HEMOGLOBIN 11.4 GM/dL (11.7-16.9); LYMPH % 16.1 % (8-40); MCH 29.2 pg (25.7-33.7); MCHC 33.4 g/dl (32.0-35.9); MEAN CELL VOLUME 87.4 fl (80-96); MEAN PLT VOLUME 8.8 fl (7.5-11.1); MONO % 11.1 % (3.8-10.2); NEUT % 71.8 % (42.8-82.8); PLATELET COUNT 181 10^3/uL (134-434); RDW 15.7 % (11.9-15.9); WHITE BLOOD COUNT 5.5 K/mm3 (4.0-10.0)
[2022-01-15 12:59] LABS: INR 1.59 (0.83-1.09); PROTHROMBIN TIME (PATIENT) 18.4 SEC (9.7-13.0)
[2022-01-15 13:01] LABS: ACTIVATED PTT 30.9 SECONDS (25.2-36.5)
[2022-01-15 13:17] LABS: ALBUMIN 3.5 g/dl (3.4-5.0); BLOOD UREA NITROGEN 28.6 mg/dL (7-18); CALCIUM 8.6 mg/dL (8.5-10.1)
[2022-01-15 13:21] LABS: BILIRUBIN,TOTAL 0.6 mg/dL (0.2-1); CREATININE 1.1 mg/dL (0.55-1.3)
[2022-01-15 13:53] LABS: PH,URINE 5.5 (5.0-8.0); URINE APPEARANCE CLEAR; URINE BILIRUBIN NEGATIVE (NEGATIVE); URINE COLOR DK YELLOW; URINE GLUCOSE (UA) NEGATIVE (NEGATIVE); URINE KETONE TRACE (NEGATIVE); URINE LEUK ESTERASE NEGATIVE (NEGATIVE); URINE NITRITE NEGATIVE (NEGATIVE); URINE PROTEIN NEGATIVE (NEGATIVE)
[2022-01-15] MEDS: INSULIN SLIDING SCALE (NOVOLOG) 1 VIAL SQ SCH (16:51)
[2022-01-15] MEDS ORDERED: FAMOTIDINE 20 MG TABLET ONE (21:57)
[2022-01-15] MEDS ORDERED: METOPROLOL TARTRATE 25 MG TABLET (FP) ONE (21:57)
[2022-01-15] MEDS ORDERED: CARBIDOPA/LEVODOPA 25/100 TABLET (FP) ONE (21:57)
[2022-01-15] MEDS ORDERED: ATORVASTATIN CA 40 MG TABLET (FP) ONE (21:57)
[2022-01-15] MEDS ORDERED: RANOLAZINE E.R. 1,000 MG TABLET (FP) PO SCH (22:00)
[2022-01-15] MEDS: RANOLAZINE E.R. 500 MG TABLET (FP) PO SCH (22:03)
[2022-01-15] MEDS: FAMOTIDINE 20 MG TABLET PO SCH (22:03)
[2022-01-15] MEDS: ATORVASTATIN CA 40 MG TABLET (FP) PO SCH (22:03)
[2022-01-15] MEDS: metoPROLOL SUCCINATE 25 MG TAB.SR.24H (FP) PO SCH (22:04)
[2022-01-16 01:01] VITALS: BMI 24.3
[2022-01-16] MEDS: INSULIN SLIDING SCALE (NOVOLOG) 1 VIAL SQ SCH ×3 (06:21→16:42)
[2022-01-16] MEDS: sitaGLIPtin PHOSPHATE 50 MG TABLET PO SCH (06:22)
[2022-01-16 08:38] LABS: BASO % 0.7 % (0-2.0); EOS % 0.4 % (0-4.5); HEMATOCRIT 32.2 % (35.4-49); LYMPH % 16.4 % (8-40); MCH 29.4 pg (25.7-33.7); MCHC 34.1 g/dl (32.0-35.9); MEAN CELL VOLUME 86.4 fl (80-96); MEAN PLT VOLUME 8.8 fl (7.5-11.1); NEUT % 70.5 % (42.8-82.8); PLATELET COUNT 170 10^3/uL (134-434); RBC 3.72 M/mm3 (4.00-5.60); RDW 15.5 % (11.9-15.9); WHITE BLOOD COUNT 5.5 K/mm3 (4.0-10.0)
[2022-01-16 09:01] LABS: ALBUMIN 3.3 g/dl (3.4-5.0); BLOOD UREA NITROGEN 22.1 mg/dL (7-18); CALCIUM 8.3 mg/dL (8.5-10.1)
[2022-01-16 09:06] LABS: BILIRUBIN,TOTAL 0.8 mg/dL (0.2-1); TOT PROT 6.7 g/dl (6.4-8.2)
[2022-01-16] MEDS: metoPROLOL SUCCINATE 25 MG TAB.SR.24H (FP) PO SCH ×2 (09:45→22:00)
[2022-01-16] MEDS: RANOLAZINE E.R. 500 MG TABLET (FP) PO SCH ×2 (09:45→22:01)
[2022-01-16] MEDS: TAMSULOSIN HCL 0.4 MG CAP PO SCH (09:46)
[2022-01-16] MEDS: FAMOTIDINE 20 MG TABLET PO SCH ×2 (09:46→22:00)
[2022-01-16] MEDS: ASPIRIN 81 MG CHEWABLE TABLETS PO SCH (09:46)
[2022-01-16] MEDS ORDERED: CARBIDOPA/LEVODOPA 25/100 TABLET (FP) PO SCH (14:00)
[2022-01-16] MEDS ORDERED: INSULIN (NOVOLOG) ASPART 100 UNITS/ML 10ML VIAL ONE (21:56)
[2022-01-16] MEDS: QUEtiapine FUMARATE 25 MG TABLET PO SCH (21:59)
[2022-01-16] MEDS: ATORVASTATIN CA 40 MG TABLET (FP) PO SCH (21:59)
[2022-01-16] MEDS ORDERED: PATIENT'S OWN MEDICATION (NON-FORMULARY) (Glipizide/Metformin Hcl [Glipizide-Metformin 5-5 PO SCH (22:00)
[2022-01-16] MEDS: GABAPENTIN 100 MG CAPSULE PO SCH (22:01)
[2022-01-16] MEDS: HEPARIN NA (PORCINE) 5,000 UNITS/ML 1ML VIAL SQ SCH (22:01)
[2022-01-17] MEDS: glipiZIDE 5 MG TABLET (FP) PO SCH ×3 (06:10→17:05)
[2022-01-17] MEDS: CARBIDOPA/LEVODOPA 25/100 TABLET (FP) PO SCH ×3 (06:10→17:05)
[2022-01-17] MEDS: metFORMIN HCL 500 MG TABLET (FP) PO SCH ×3 (06:10→17:05)
[2022-01-17] MEDS: INSULIN SLIDING SCALE (NOVOLOG) 1 VIAL SQ SCH ×3 (06:10→17:06)
[2022-01-17] MEDS: sitaGLIPtin PHOSPHATE 50 MG TABLET PO SCH (06:10)
[2022-01-17] MEDS ORDERED: INSULIN (NOVOLOG) ASPART 100 UNITS/ML 10ML VIAL ONE (07:36)
[2022-01-17] MEDS: FAMOTIDINE 20 MG TABLET PO SCH ×2 (09:30→21:53)
[2022-01-17] MEDS: RANOLAZINE E.R. 500 MG TABLET (FP) PO SCH ×2 (09:30→21:53)
[2022-01-17] MEDS: TAMSULOSIN HCL 0.4 MG CAP PO SCH (09:30)
[2022-01-17] MEDS: ASPIRIN 81 MG CHEWABLE TABLETS PO SCH (09:30)
[2022-01-17] MEDS: metoPROLOL SUCCINATE 25 MG TAB.SR.24H (FP) PO SCH ×2 (09:30→21:53)
[2022-01-17] MEDS: HEPARIN NA (PORCINE) 5,000 UNITS/ML 1ML VIAL SQ SCH ×2 (09:30→21:53)
[2022-01-17] MEDS: ATORVASTATIN CA 40 MG TABLET (FP) PO SCH (21:53)
[2022-01-17] MEDS: QUEtiapine FUMARATE 25 MG TABLET PO SCH (21:53)
[2022-01-17] MEDS: GABAPENTIN 100 MG CAPSULE PO SCH (21:53)
[2022-01-18] MEDS: INSULIN SLIDING SCALE (NOVOLOG) 1 VIAL SQ SCH ×3 (06:01→17:03)
[2022-01-18] MEDS: CARBIDOPA/LEVODOPA 25/100 TABLET (FP) PO SCH ×3 (06:29→17:03)
[2022-01-18] MEDS: sitaGLIPtin PHOSPHATE 50 MG TABLET PO SCH (06:30)
[2022-01-18] MEDS: glipiZIDE 5 MG TABLET (FP) PO SCH ×3 (06:30→17:03)
[2022-01-18] MEDS: metFORMIN HCL 500 MG TABLET (FP) PO SCH ×3 (06:30→17:03)
[2022-01-18] MEDS: FAMOTIDINE 20 MG TABLET PO SCH ×2 (09:26→21:15)
[2022-01-18] MEDS: metoPROLOL SUCCINATE 25 MG TAB.SR.24H (FP) PO SCH ×2 (09:26→21:14)
[2022-01-18] MEDS: RANOLAZINE E.R. 500 MG TABLET (FP) PO SCH ×2 (09:26→21:16)
[2022-01-18] MEDS: TAMSULOSIN HCL 0.4 MG CAP PO SCH (09:27)
[2022-01-18] MEDS: ASPIRIN 81 MG CHEWABLE TABLETS PO SCH (09:27)
[2022-01-18] MEDS: HEPARIN NA (PORCINE) 5,000 UNITS/ML 1ML VIAL SQ SCH ×2 (09:27→21:16)
[2022-01-18] MEDS ORDERED: MEGESTROL ACETATE 400 MG/10 ML UNIT DOSE CUP PO SCH (16:30)
[2022-01-18] MEDS ORDERED: COLCHICINE 0.6 MG CAP PO ONE (18:34)
[2022-01-18] MEDS: GABAPENTIN 100 MG CAPSULE PO SCH (21:14)
[2022-01-18] MEDS: QUEtiapine FUMARATE 25 MG TABLET PO SCH (21:15)
[2022-01-18] MEDS: ATORVASTATIN CA 40 MG TABLET (FP) PO SCH (21:16)
[2022-01-19] MEDS: INSULIN SLIDING SCALE (NOVOLOG) 1 VIAL SQ SCH ×3 (06:07→17:15)
[2022-01-19] MEDS: CARBIDOPA/LEVODOPA 25/100 TABLET (FP) PO SCH ×3 (06:16→17:12)
[2022-01-19] MEDS: metFORMIN HCL 500 MG TABLET (FP) PO SCH ×3 (06:38→17:13)
[2022-01-19] MEDS: sitaGLIPtin PHOSPHATE 50 MG TABLET PO SCH (06:39)
[2022-01-19] MEDS: glipiZIDE 5 MG TABLET (FP) PO SCH ×3 (06:39→17:13)
[2022-01-19] MEDS: FAMOTIDINE 20 MG TABLET PO SCH (09:54)
[2022-01-19] MEDS: TAMSULOSIN HCL 0.4 MG CAP PO SCH (09:54)
[2022-01-19] MEDS: metoPROLOL SUCCINATE 25 MG TAB.SR.24H (FP) PO SCH (09:54)
[2022-01-19] MEDS: ASPIRIN 81 MG CHEWABLE TABLETS PO SCH (09:54)
[2022-01-19] MEDS: RANOLAZINE E.R. 500 MG TABLET (FP) PO SCH (09:54)
[2022-01-19] MEDS: HEPARIN NA (PORCINE) 5,000 UNITS/ML 1ML VIAL SQ SCH (09:54)
[2022-01-19 13:59] VITALS: BP 117/56; PULSE 60; TEMP 98.2
== END 2022-01-19 19:01 | disposition home or self-care (01) | DRG 948 ==
LOC: JER 11:03 → JERBED 16:11 → J6S 23:25 → OBSVTOIN 01-17 12:04
PROVIDERS: ADMIT Internal Medicine; ATTEND Internal Medicine
DX: R53.1 Weakness (principal); G90.3 Multi-system degeneration of the autonomic nervous system; R26.81 Unsteadiness on feet; I25.10 Atherosclerotic heart disease of native coronary artery without angina pectoris; E11.9 Type 2 diabetes mellitus without complications; E78.00 Pure hypercholesterolemia, unspecified; E78.5 Hyperlipidemia, unspecified; I10 Essential (primary) hypertension; D64.9 Anemia, unspecified; G20 Parkinson's disease; T46.995A Adverse effect of other agents primarily affecting the cardiovascular system, initial encounter; Y92.89 Other specified places as the place of occurrence of the external cause; Z95.1 Presence of aortocoronary bypass graft; Z98.61 Coronary angioplasty status; E11.42 Type 2 diabetes mellitus with diabetic polyneuropathy
CPT/HCPCS: 36415; 70450-TC; 71045-TC-FY; 73130-TC-RT-FY; 80053; 81003; 82962; 83880; 84439; 84443; 84484; 84550; 85025; 85610; 85651; 85730; 87086; 93005; 93010; 97116-GP; 99285-25; C9803-CS; G0378; J1644; U0003; U0005

== ENCOUNTER 2022-01-28 00:02 | Observation (INO) | payer OTHER ==
[2022-01-28 00:55] LABS: BASO % 0.5 % (0-2.0); EOS % 0.3 % (0-4.5); HEMATOCRIT 34.3 % (35.4-49); HEMOGLOBIN 11.6 GM/dL (11.7-16.9); LYMPH % 3.7 % (8-40); MCH 29.6 pg (25.7-33.7); MCHC 33.7 g/dl (32.0-35.9); MEAN PLT VOLUME 8.6 fl (7.5-11.1); MONO % 10.2 % (3.8-10.2); NEUT % 85.3 % (42.8-82.8); PLATELET COUNT 189 10^3/uL (134-434); RDW 15.6 % (11.9-15.9); WHITE BLOOD COUNT 8.4 K/mm3 (4.0-10.0)
[2022-01-28 01:17] LABS: CALCIUM 8.4 mg/dL (8.5-10.1)
[2022-01-28 01:18] LABS: ALBUMIN 3.4 g/dl (3.4-5.0); BLOOD UREA NITROGEN 29.4 mg/dL (7-18); MAGNESIUM 1.5 mg/dL (1.8-2.4)
[2022-01-28 01:21] LABS: CREATININE 1.1 mg/dL (0.55-1.3)
[2022-01-28 01:23] LABS: BILIRUBIN,TOTAL 0.4 mg/dL (0.2-1); TOT PROT 6.9 g/dl (6.4-8.2)
[2022-01-28] MEDS ORDERED: MAGNESIUM SULF 50% (8.12 MEQ/2 ML-1 GM VIAL) IVPB ONE (02:39)
[2022-01-28] MEDS ORDERED: SODIUM CHLORIDE 0.9% 500 ML INFUS.BAG IV ONE (02:41)
[2022-01-28] MEDS ORDERED: MAGNESIUM 1GM/D5W - 1 GM/100 ML IVPB IVPB ONE (02:51)
[2022-01-28 03:48] LABS: URINE APPEARANCE CLEAR; URINE BILIRUBIN NEGATIVE (NEGATIVE); URINE COLOR YELLOW; URINE GLUCOSE (UA) 2+ (NEGATIVE); URINE KETONE NEGATIVE (NEGATIVE); URINE LEUK ESTERASE NEGATIVE (NEGATIVE); URINE NITRITE NEGATIVE (NEGATIVE); URINE PROTEIN NEGATIVE (NEGATIVE); URINE UROBILINOGEN 0.2 mg/dL (0.2-1.0)
[2022-01-28 05:41] VITALS: BMI 22.8
[2022-01-28] MEDS ORDERED: CARBIDOPA/LEVODOPA 25/100 TABLET (FP) PO SCH (07:00)
[2022-01-28] MEDS: CARBIDOPA/LEVODOPA 25/100 TABLET (FP) PO SCH ×3 (08:33→17:27)
[2022-01-28] MEDS: TAMSULOSIN HCL 0.4 MG CAP PO SCH (08:40)
[2022-01-28] MEDS: ASPIRIN 81 MG CHEWABLE TABLETS PO SCH (09:44)
[2022-01-28] MEDS: metoPROLOL SUCCINATE 25 MG TAB.SR.24H (FP) PO SCH ×2 (09:44→21:52)
[2022-01-28] MEDS: FAMOTIDINE 20 MG TABLET PO SCH ×2 (09:44→21:52)
[2022-01-28] MEDS: RANOLAZINE E.R. 500 MG TABLET (FP) PO SCH ×2 (09:44→21:52)
[2022-01-28] MEDS ORDERED: cefTRIAXone SODIUM 1 GM VIAL ONE (12:56)
[2022-01-28] MEDS ORDERED: DEXTROSE 5%-WATER - 50 ML IVPB ONE (12:56)
[2022-01-28] MEDS: CEFTRIAXONE 1 GM in DEXTROSE 5%-WATER - 50 ML IVPB SCH (13:10)
[2022-01-28] MEDS: QUEtiapine FUMARATE 25 MG TABLET PO SCH (21:51)
[2022-01-28] MEDS: ATORVASTATIN CA 40 MG TABLET (FP) PO SCH (21:52)
[2022-01-28] MEDS: GABAPENTIN 100 MG CAPSULE PO SCH (21:53)
[2022-01-28] MEDS: INSULIN SLIDING SCALE (NOVOLOG) 1 VIAL SQ SCH ×2 (21:57→22:02)
[2022-01-29] MEDS: INSULIN SLIDING SCALE (NOVOLOG) 1 VIAL SQ SCH ×4 (06:05→22:27)
[2022-01-29 07:23] LABS: BASO % 0.7 % (0-2.0); EOS % 1.8 % (0-4.5); HEMATOCRIT 30.7 % (35.4-49); HEMOGLOBIN 10.5 GM/dL (11.7-16.9); LYMPH % 17.4 % (8-40); MCH 29.8 pg (25.7-33.7); MCHC 34.3 g/dl (32.0-35.9); MEAN CELL VOLUME 86.9 fl (80-96); MEAN PLT VOLUME 8.7 fl (7.5-11.1); MONO % 18.9 % (3.8-10.2); NEUT % 61.2 % (42.8-82.8); PLATELET COUNT 172 10^3/uL (134-434); RBC 3.53 M/mm3 (4.00-5.60); RDW 15.5 % (11.9-15.9); WHITE BLOOD COUNT 5.4 K/mm3 (4.0-10.0)
[2022-01-29 07:36] LABS: CALCIUM 8.4 mg/dL (8.5-10.1)
[2022-01-29 07:37] LABS: ALBUMIN 2.9 g/dl (3.4-5.0); BLOOD UREA NITROGEN 16.5 mg/dL (7-18); MAGNESIUM 1.8 mg/dL (1.8-2.4)
[2022-01-29 07:40] LABS: CREATININE 0.9 mg/dL (0.55-1.3)
[2022-01-29 07:41] LABS: BILIRUBIN,TOTAL 0.6 mg/dL (0.2-1)
[2022-01-29 07:42] LABS: TOT PROT 6.3 g/dl (6.4-8.2)
[2022-01-29] MEDS ORDERED: cefTRIAXone SODIUM 1 GM VIAL ONE (09:38)
[2022-01-29] MEDS ORDERED: DEXTROSE 5%-WATER - 50 ML IVPB ONE (09:39)
[2022-01-29] MEDS: CEFTRIAXONE 1 GM in DEXTROSE 5%-WATER - 50 ML IVPB SCH (10:18)
[2022-01-29] MEDS: RANOLAZINE E.R. 500 MG TABLET (FP) PO SCH ×2 (10:19→22:26)
[2022-01-29] MEDS: ASPIRIN 81 MG CHEWABLE TABLETS PO SCH (10:19)
[2022-01-29] MEDS: CARBIDOPA/LEVODOPA 25/100 TABLET (FP) PO SCH ×2 (10:19→16:30)
[2022-01-29] MEDS: metoPROLOL SUCCINATE 25 MG TAB.SR.24H (FP) PO SCH ×2 (10:19→22:26)
[2022-01-29] MEDS: TAMSULOSIN HCL 0.4 MG CAP PO SCH (10:20)
[2022-01-29] MEDS: FAMOTIDINE 20 MG TABLET PO SCH ×2 (10:20→22:26)
[2022-01-29] MEDS: MAGNESIUM OXIDE 400 MG TABLET (FP) PO SCH ×2 (14:07→22:27)
[2022-01-29] MEDS ORDERED: CARBIDOPA/LEVODOPA 25/100 TABLET (FP) PO SCH (16:00)
[2022-01-29] MEDS: metFORMIN HCL 500 MG TABLET (FP) PO SCH (17:05)
[2022-01-29] MEDS: HEPARIN NA (PORCINE) 5,000 UNITS/ML 1ML VIAL SQ SCH (22:25)
[2022-01-29] MEDS: GABAPENTIN 100 MG CAPSULE PO SCH (22:26)
[2022-01-29] MEDS: QUEtiapine FUMARATE 25 MG TABLET PO SCH (22:27)
[2022-01-29] MEDS: ATORVASTATIN CA 40 MG TABLET (FP) PO SCH (22:32)
[2022-01-30] MEDS: metFORMIN HCL 500 MG TABLET (FP) PO SCH (06:09)
[2022-01-30] MEDS: CARBIDOPA/LEVODOPA 25/100 TABLET (FP) PO SCH ×3 (06:10→15:03)
[2022-01-30] MEDS: INSULIN SLIDING SCALE (NOVOLOG) 1 VIAL SQ SCH ×2 (06:10→12:05)
[2022-01-30] MEDS ORDERED: sitaGLIPtin PHOSPHATE 50 MG TABLET PO SCH (07:00)
[2022-01-30] MEDS: MAGNESIUM OXIDE 400 MG TABLET (FP) PO SCH (10:32)
[2022-01-30] MEDS: ASPIRIN 81 MG CHEWABLE TABLETS PO SCH (10:32)
[2022-01-30] MEDS: TAMSULOSIN HCL 0.4 MG CAP PO SCH (10:32)
[2022-01-30] MEDS: RANOLAZINE E.R. 500 MG TABLET (FP) PO SCH (10:32)
[2022-01-30] MEDS: HEPARIN NA (PORCINE) 5,000 UNITS/ML 1ML VIAL SQ SCH (10:32)
[2022-01-30] MEDS: FAMOTIDINE 20 MG TABLET PO SCH (10:32)
[2022-01-30] MEDS: metoPROLOL SUCCINATE 25 MG TAB.SR.24H (FP) PO SCH (10:33)
[2022-01-30 15:19] VITALS: BP 132/58; PULSE 59; TEMP 97.9
== END 2022-01-30 15:41 | disposition home or self-care (01) ==
LOC: JER 00:02 → JERBED 00:37 → J5S 04:17
PROVIDERS: ADMIT Internal Medicine; ATTEND Internal Medicine
PROC: 3E03329 Introduction of Other Anti-infective into Peripheral Vein, Percutaneous Approach (ICD-10-PCS; principal; 2022-01-28)
PROC: 3E023GC Introduction of Other Therapeutic Substance into Muscle, Percutaneous Approach (ICD-10-PCS; 2022-01-28)
PROC: 3E013VG Introduction of Insulin into Subcutaneous Tissue, Percutaneous Approach (ICD-10-PCS; 2022-01-28)
PROC: 3E033GC Introduction of Other Therapeutic Substance into Peripheral Vein, Percutaneous Approach (ICD-10-PCS; 2022-01-28)
PROC: 3E0337Z Introduction of Electrolytic and Water Balance Substance into Peripheral Vein, Percutaneous Approach (ICD-10-PCS; 2022-01-28)
DX: G20 Parkinson's disease (principal); I25.10 Atherosclerotic heart disease of native coronary artery without angina pectoris; E11.9 Type 2 diabetes mellitus without complications; E78.5 Hyperlipidemia, unspecified; I25.83 Coronary atherosclerosis due to lipid rich plaque; I35.0 Nonrheumatic aortic (valve) stenosis; I11.9 Hypertensive heart disease without heart failure; D64.9 Anemia, unspecified; Z87.891 Personal history of nicotine dependence; Z95.5 Presence of coronary angioplasty implant and graft; Z95.1 Presence of aortocoronary bypass graft
CPT/HCPCS: 36415; 70450-TC; 71045-TC-FY; 72125-TC; 80053; 81003; 82962; 83036; 83735; 84484; 85025; 87086; 93005; 93010; 96365; 96372; 96375; 97116-GP; 97162-GP; 99285-25; C9803-CS; G0378; J1644; U0003; U0005